=== PATIENT | female | born 1965 | race Caucasian/White ===

== ENCOUNTER 2019-10-16 05:33 | Outpatient (RCR) | payer MEDICAID, SELFPAY | END 2019-11-06 00:01 | LOC: ONCMED 05:33 | PROVIDERS: Family Provider Family Medicine; Referring Provider Family Medicine; Visit Provider Internal Medicine Medical Oncology | DX: C34.02 Malignant neoplasm of left main bronchus (principal); C79.71 Secondary malignant neoplasm of right adrenal gland; K21.9 Gastro-esophageal reflux disease without esophagitis; K59.00 Constipation, unspecified; R13.10 Dysphagia, unspecified; F41.8 Other specified anxiety disorders; J18.1 Lobar pneumonia, unspecified organism; J43.9 Emphysema, unspecified; J90 Pleural effusion, not elsewhere classified; I31.3 Pericardial effusion (noninflammatory); B19.20 Unspecified viral hepatitis C without hepatic coma; E03.9 Hypothyroidism, unspecified; M19.90 Unspecified osteoarthritis, unspecified site; F17.210 Nicotine dependence, cigarettes, uncomplicated; Z92.3 Personal history of irradiation ==

== ENCOUNTER 2019-11-15 05:59 | Outpatient (RCR) | payer MEDICAID, SELFPAY ==
[2019-11-15 14:22] LABS: Basophils % 0.2 %; Eosinophils # 0.1 10^3/uL (0.0-0.8); Eosinophils % 2.9 %; Hematocrit 35.9 % (37.0-47.0); Hemoglobin 11.4 g/dL (11.5-15.3); Lymphocytes # 0.9 10^3/uL (0.8-4.8); Lymphocytes % 18.6 %; Mean Corpuscular HGB Conc 31.8 g/dL (30.0-36.0); Mean Corpuscular Hemoglobin 29.8 pg (28.0-34.0); Mean Corpuscular Volume 93.7 fL (81-99); Mean Platelet Volume 9.9 fL (7.4-10.4); Monocytes # 0.4 10^3/uL (0.2-0.9); Monocytes % 9.2 %; Neutrophils # 3.3 10^3/uL (1.8-7.7); Neutrophils % 68.7 %; Nucleated Red Blood Cells % 0 %; Platelet Count 183 10^3/cmm (130-400); Red Blood Count 3.83 10^6/uL (4.1-5.3); Red Cell Distribution Width 13.9 % (12.1-15.1); White Blood Count 4.8 10^3/uL (4.0-10.0)
[2019-11-15 15:08] LABS: Alanine Aminotransferase 13 U/L (0-33); Albumin Level 3.6 g/dL (3.5-5.2); Alkaline Phosphatase 84 IU/L (35-105); Anion Gap 14.1 (5-19); Aspartate Amino Transferase 20 U/L (0-32); Blood Urea Nitrogen 6 mg/dL (6-20); Calcium 9.2 mg/Dl (8.6-10.0); Carbon Dioxide 26 mmol/L (22-29); Chloride 100 mmol/L (98-107); Globulin 2.3 g/dL (1.3-4.6); Glomerular Filtration Rate 86.9 mL/min (90-130); Glucose 92 mg/dL (74-109); Potassium 4.1 mmol/L (3.5-5.1); Sodium 136 mmol/L (136-145); Thyroid Stimulating Hormone 3.99 uIU/mL (0.27-4.20); Total Bilirubin 0.3 mg/dL (0.15-1.2); Total Protein 5.9 g/dL (6.6-8.7)
--- NOTE | 2019-11-19 10:45 | ONC FU_ITS ---
Dr. Hernandez Patient Follow-Up Note Patient: Debbie Arce Unit #: [id number]: 1965 Dicatated By: Sky Hernandez M.D.Date of Visit:Nov 15, 2019 Onc Med Follow-up/Prog Note Chief Complaint: Lung cancer. 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 She had been treated for pneumonia in October 2018 and she just never really got better. She had worsening shortness of breath and cough and she was then found to have an abnormal chest x-ray. Further evaluation with chest CT on 01/05/2019 showed prominent sized confluent lobulated masslike lesion within the AP window continuous with larger masslike lesion within the precarinal and subcarinal space. The lateral margin of the precarinal mass was noted to extend into the right paratracheal space. There were a few other mildly enlarged lymph nodes noted within the superior right paratracheal space. There was contiguous soft tissue thickening of the left hilar region. There was a mildly enlarged right hilar lymph node. The majority of the left upper lobe and lingula were occupied with parenchymal consolidation, at least partially reflective of atelectasis. There was no pleural effusion noted. There was trace pericardial effusion. A 3.4 cm right adrenal mass was felt to be suspicious for metastasis. Also noted was a 1 cm nodule within the right upper lobe and a smaller 8 mm nodule within the central aspect of the right upper lobe adjacent to bronchovascular structures. On 01/22/2019 she underwent bronchoscopy with biopsy of left mainstem endobronchial mass and EBUS with FNA biopsy of station 10R, station 4R, and station 7 lymph nodes. The bronchoscopy showed a fleshy polypoid growth with necrotic surface rising about half a centimeter from the left mainstem extending along the anterior and lateral mainstem wall into the left upper lobe and left lower lobe. Biopsies of the endobronchial mass and of the station 4R lymph node showed small cell carcinoma. She began urgent radiation to the left lung on 02/02/2019. Her staging PET/CT on 02/03/2019 showed large left hilar mass measuring 6.0 x 9.1 cm with SUV 16.8. There was complete atelectasis of the left upper lobe. A 1.2 cm right upper lobe nodule at SUV 6.9, consistent with metastatic disease. An FDG positive right upper hilar lymph node was also likely metastatic. There were additional malignant lymph nodes in the superior mediastinum, pretracheal and subcarinal territories. A 9.6 cm right adrenal mass at SUV 18.5, consistent with metastatic disease. Given the PET/CT findings, her initial radiation was limited to a brief course of treatment, completed on 02/09/2019 to a total dose of 2400 cGy. Following completion of radiation, she began a course of chemotherapy with carboplatin/etoposide, cycle 1 day 1 on 02/13/2019. She completed that treatment without acute toxicity. On 02/26/2019 she was admitted to the hospital with severe neutropenia and thrombocytopenia. At that time she reported increased weakness and increased chest congestion and cough. She was not febrile and she was not having any active bleeding. Her chest x-ray, though, did show findings compatible with lingular pneumonia. She was treated with Neupogen and broad-spectrum antibiotic therapy. She was not transfused platelets, as she did not appear to have a significant bleeding tendency. She was discharged on 03/03/2019 with her absolute neutrophil count adequate at 3700 and her platelet count up to 32,000. As of her follow-up visit on 03/06/2019 her platelet count was still moderately decreased at 62,000, and her 2nd cycle of chemotherapy was delayed. She was able to continue with cycle 2 on 03/14/2019. It was administered with dose reductions and with Neulasta prophylactically. Restaging CT scans of the chest, abdomen, and pelvis on 04/09/2019 showed markedly decreased size of the left hilar mass with interval aeration of the left upper lobe. There was residual mediastinal and left hilar soft tissue opacity with subcarinal lymphadenopathy, residual tumor not excluded. The right adrenal gland nodule also appeared smaller. Coarse interstitial thickening was noted in the left upper lobe and there was new right middle and right lower lobe groundglass attenuation. With evidence of response by CT scan, she continued with cycle 3 on 04/11/2019 and with cycle 4 on 05/15/2019. During that time her neutrophil count and platelet count remained adequate, but she became increasingly anemic, requiring PRBC transfusion on 05/08/2019. Her restaging chest CT on 06/21/2019 showed stable mediastinal and left hilar soft tissue opacity. Enhancing anterior mediastinal AP window and precarinal soft tissue thickening also appeared unchanged from the prior study in April 2019. Subcarinal lymphadenopathy was stable at 10 mm. A 5 mm noncalcified right lower lobe pulmonary nodule at increased slightly in size. Interstitial infiltrates in the left upper lobe, lingula, and left lower lobe appeared stable. There were moderate to advanced chronic emphysematous changes. A right adrenal nodule was stable at 12 mm. Repeat head MRI on 2018 showed no evidence of metastatic disease to the brain. With those findings, she was referred to Dr. Golden for consolidation radiation. She completed treatment on 08/23/2019 to a total dose of 4600 cGy. Her medical history is otherwise significant for degenerative arthritis, hypothyroidism, hepatitis C, and anxiety/depression. She has history of smoking 1-2 packs of cigarettes daily. She has cut down. INTERIM HISTORY: Restaging chest CT on 10/12/2019 showed left upper and left lower lobe pneumonitis with variable appearance compared to the study from 06/21/2019. Small left pleural effusion and small pericardial effusion were increased from the prior exam. There was no stable treated appearance of the mediastinum and left hilum. There was no evidence of progressive or new lymphadenopathy and there was no evidence of a neoplastic mass lesion in the lungs. There was no evidence of progression of previous metastatic lesion to the right adrenal gland. A right breast nodule measuring 1.5cm appeared stable compared to the PET/CT from 02/03/2019, and it was noted to be FDG negative on that study. She is seen for a follow-up visit. She continues to complain that she has no energy. She also complains that she is sleepy, but she is able to do light work. Her ECOG is 1. Appetite is variable. Her weight is stable. She has no fever, but she does have night sweating. She has sore throat and difficulty swallowing. She sometimes has shortness of breath. She has cough, but not very much. She continues to have stabbing pain in the substernal, epigastric area. She has no other GI or complaints. She has pain in her back, especially in the area of the left shoulder blade. She has generalized joint pain. She has lightheadness when she gets up. She has numbness/tingling in her feet. Medications: ALPRAZolam 1 Tablet (of 0.25 mg) Oral t.i.d., Fludrocortisone Acetate 1 Tablet (of 0.1 mg) Oral daily, Levo-T 1 Tablet (of 25 mcg) Oral daily, Loratadine 1 Tablet (of 10 mg) Oral daily, Morphine Sulfate 1 Tablet (of 15 mg) Oral four times a day, Morphine Sulfate ER 1 Tablet (of 30 mg) Tablet, controlled release Oral q 12 hours, predniSONE 1 Tablet (of 10 mg) Oral daily, Protonix 1 Tablet (of 40 mg) Tablet, enteric coated Oral daily Allergies: Erythromycin Base, Latex, Penicillins, Sulfa Antibiotics, and traMADol HCl. Review of Systems: Constitutional - Her energy is not good, but she is able to do light work at home. Her appetite comes and goes. Her weight is stable. No fever. She does have night sweating. ECOG score is 1, ENMT - No sinus congestion/drainage. No mouth sores. She has sore throat and she has difficulty swallowing, Hematologic/Lymphatic - No abnormal bruising or bleeding, Respiratory - She is sometimes short of breath. She has a cough, but not very much. No pleuritic pain or hemoptysis, Cardiovascular - She has stabbing pain in the substernal/epigastric area. No palpitations, Gastrointestinal - She has some nausea. Her acid reflux is adequately managed. No constipation or diarrhea. No blood in the stool or black stools, Genitourinary (F) - No dysuria or hematuria. No urinary frequency. No urgency or incontinence, Musculoskeletal - She has pain in her back, especially in the area of the left shoulder blade. She has generalized joint pain, Integumentary - No skin complications, Neurologic - No headache. She has some lightheadedness. She has numbness/tingling in her feet, Psychiatric - She has anxiety and depression. She does not sleep well at night. Vital Signs: Performed on Nov 15, 2019 15:01 Height - 66.00 in Weight - 121.0 lbs (LOW) BSA - 1.62 sq.m BMI - 19.53 Temperature - 97.8 F (LOW) Pulse - 87 /min Respiration - 18 /min BP - 87/58 mm(hg) (LOW) O2 Sat - 97 % Pain - 8 Physical Examination: Constitutional - She appears somewhat weak generally, Eyes - Sclerae nonicteric. Conjunctivae clear, ENMT - No lesions noted in the oral cavity, Hematologic/Lymphatic - No cervical, clavicular, or axillary adenopathy, Respiratory - Lungs sound clear with diminished air movement bilaterally, Cardiovascular - Heart rhythm is regular. There is no murmur, gallop, or rub noted, Abdomen - Soft. Liver and spleen are not enlarged. There is no abdominal mass or ascites noted and there is no inguinal adenopathy, Extremities - No edema, Neurologic - No focal neurologic deficits noted. Lab/Imaging: Test performed on Nov 15, 2019 13:56 Sodium 136 mmol/L TSH 3.99 uIU/mL Potassium 4.1 mmol/L Chloride 100 mmol/L CO2 26 mmol/L Anion Gap 14.1 BUN 6 mg/dL Creatinine 0.7 mg/dL Cr Clearance (Est) 78.68 mL/min eGFR 86.9 mL/min Glucose 92 mg/dL Calcium 9.2 mg/dL Protein, Total 5.9 g/dL Albumin 3.6 g/dL Globulin 2.3 g/dL Bilirubin, Total 0.3 mg/dL ALT (SGPT) 13 Units/L AST (SGOT) 20 Units/L Alkaline Phosphatase 84 IU/L WBC 4.8 10^3/uL RBC 3.83 10^6/uL HGB 11.4 g/dL HCT 35.9 % MCV 93.7 fl MCH 29.8 pg MCHC 31.8 g/dL RDW 13.9 % Platelet Count 183 10^3/uL MPV 9.9 fl Neutrophils 3.3 10 3/uL Lymphocytes 0.9 10^3/uL Monocytes 0.4 10^3/uL Eosinophils 0.1 10^3/uL Basophils 0.0 10^3/uL Neutrophil % 68.7 % Lymphocyte % 18.6 % Monocyte % 9.2 % Eosinophil % 2.9 % Basophils % 0.2 % Impression: 1. Patient with small cell carcinoma involving the mainstem bronchus of the left lung. By clinical evaluation her disease is stage IV (T2, N3, M1b) with PET/CT evidence of right adrenal metastasis. 2. There was associated left upper lobe and lingular atelectasis on her CT scan from 01/05/2019. 3. She reported having headache and vomiting, but her brain MRI showed no evidence for metastatic involvement. Her other medical illnesses include: 4. She has a history of hepatitis C, which apparently has not been treated. 5. Hypothyroidism. 6. Degenerative arthritis. 7. Chronic anxiety/depression. Due to involvement of the mainstem bronchus she began radiation urgently. In the setting metastatic disease the initial radiation was limited to a brief course of treatment, completed on 02/09/2019 to a total dose of 2400 cGy. She then began cycle 1 of carboplatin/etoposide chemotherapy on 02/13/2019. She had no acute toxicity with the chemotherapy. She did develop symptoms of radiation esophagitis, treated empirically with ranitidine and fluconazole. On 02/26/2019 she was admitted to the hospital with severe neutropenia and thrombocytopenia. She was not febrile, but her chest x-ray did show evidence of lingular pneumonia. She was treated Neupogen and broad-spectrum antibiotic coverage. She did not have bleeding, and she did not require platelet transfusion. Cycle 2 was delayed due to persistent thrombocytopenia. It was administered with dose reductions and with Neulasta prophylactically. She did have evidence of significant response by restaging CT scans on 04/09/2019. She then continued with cycle 3 on 04/11/2019 and with cycle 4 on 05/15/2019. She was tolerating treatment with acceptable toxicity, though she did require PRBC transfusion prior to cycle 4. Her restaging chest CT on 06/21/2019 showed stable mediastinal and left hilar soft tissue opacity. Enhancing anterior mediastinal AP window and precarinal soft tissue thickening also appeared unchanged from the prior study in April 2019. Subcarinal lymphadenopathy was stable at 10 mm. A 5 mm noncalcified right lower lobe pulmonary nodule at increased slightly in size. Interstitial infiltrates in the left upper lobe, lingula, and left lower lobe appeared stable. There were moderate to advanced chronic emphysematous changes. A right adrenal nodule was stable at 12 mm. Repeat head MRI on a 2018 showed no evidence of metastatic disease to the brain. With those findings, she was referred to Dr. Golden for consolidation radiation. She completed treatment on 08/23/2019 to a total dose of 4600 cGy. She experienced significant side effects during the chemotherapy and radiation, but those had gradually resolved. She has continued, though, to have significant fatigue and musculoskeletal pain. She continues to have some ongoing problems with anxiety/depression. She had a very good response to the treatment, thus far with CT no evidence of disease progression. Plan: She continues on observation/expectant management for the lung cancer. She will be scheduled for a follow-up visit with restaging CT scans in 2 months. In the meantime, I will have her try increasing citalopram to 40 mg daily. Signed By: Sky Hernandez M.D. <<Signature on File>>
== END 2019-12-07 23:59 | disposition home or self-care (01) ==
LOC: ONCMED 05:59
PROVIDERS: Family Provider Family Medicine; Visit Provider Internal Medicine Medical Oncology
DX: C79.71 Secondary malignant neoplasm of right adrenal gland (principal); Z85.118 Personal history of other malignant neoplasm of bronchus and lung; M19.90 Unspecified osteoarthritis, unspecified site; E03.9 Hypothyroidism, unspecified; J43.9 Emphysema, unspecified; B19.20 Unspecified viral hepatitis C without hepatic coma; F41.8 Other specified anxiety disorders; F17.210 Nicotine dependence, cigarettes, uncomplicated; J90 Pleural effusion, not elsewhere classified; I31.3 Pericardial effusion (noninflammatory); Z79.891 Long term (current) use of opiate analgesic; Z87.01 Personal history of pneumonia (recurrent); Z92.3 Personal history of irradiation; Z92.21 Personal history of antineoplastic chemotherapy
CPT/HCPCS: 36591; 80053; 84443; 85025; 99214

== ENCOUNTER 2019-12-17 06:13 | Outpatient (RCR) | payer MEDICAID, SELFPAY | END 2020-01-05 23:59 | disposition home or self-care (01) | LOC: ONCMED 06:13 | PROVIDERS: Family Provider Family Medicine; Visit Provider Internal Medicine Medical Oncology | DX: Z45.2 Encounter for adjustment and management of vascular access device (principal) | CPT/HCPCS: 96523 ==

== ENCOUNTER 2020-01-14 11:10 | Emergency (ER) | payer MEDICAID, SELFPAY ==
--- NOTE | 2020-01-14 11:14 | XRR_ITS ---
PROCEDURE INFORMATION: Exam: XR Right Hip with Pelvis Exam date and time: 01/14/2020 12:12 PM Age: 54 years old Clinical indication: Injury or trauma; Fall; Initial encounter; Blunt trauma (contusions or hematomas); Right; Hip; Injury date: Today; Additional info: Fall/pain TECHNIQUE: Imaging protocol: XR Right hip with pelvis Views: Three views of the right hip, including AP pelvis. COMPARISON: CR Pelvis AP 1 or 2 views* [id number] 04/11/2019 11:07 AM FINDINGS: Bones/joints: No acute bony abnormality identified. Soft tissues: Unremarkable. Vasculature: Calcified phleboliths are present in the lower pelvis bilaterally. XR/XR hip RT 2-3V wo/w pel* [id number] IMPRESSION: No acute bony abnormality identified.
[2020-01-14 12:03] VITALS: BP 91/69; PULSE 94; RESP 18; TEMP 36.9; O2SAT 93; BMI 20.9
[2020-01-14 12:33] VITALS: BP 93/67; PULSE 93; RESP 18; O2SAT 94
--- NOTE | 2020-01-14 13:41 | ED_ITS ---
HPI - Fall General: Chief Complaint: Extremity Injury, Lower Stated Complaint: FALL RIGHT HIP PAIN Time Seen by Provider: 01/14/20 12:50 Source: patient Mode of arrival: ambulatory Limitations: no limitations History of Present Illness: HPI Narrative: Patient is a 54-year-old female who presents to ED today with complaints of acute right hip pain following a fall. Patient tells me this morning she was walking to the fridge when she began coughing which then caused her to become lightheaded and fall. Patient tells me that these are not new symptoms for her as she often gets lightheaded and dizzy following coughing. Patient states she can normally sit down and put her head between her legs to keep herself from passing out. Patient states the fall was witnessed and reports that she did not strike her head. She is not having any neck or back pain. Her only complaint is the right hip pain. MD complaint: fall Onset (ago): hour(s) Fall from: standing Fall witnessed: yes, by family Place fall occurred: home Loss of consciousness: None Prolonged down time: no Symptoms prior to fall: lightheadedness and dizziness Associated symptoms-after fall: Denies neck pain Review of Systems Const: Denies: fever, chills, body aches, change in appetite, change in weight or fatigue Resp: Reports: shortness of breath (chronic ) and productive cough (chronic ) Musc: Reports: joint pain (R hip); Denies: neck pain, back pain, extremity pain, extremity swelling or joint swelling Neuro: Denies: numbness in extremities, weakness in extremities or changes in sensation PFS ED PFSH: Social History Smoking and tobacco status: current every day smoker Physical Exam Const: COMMON NORMALS: no apparent distress, average body habitus, oriented x3, no limitations, healthy appearing, alert and well nourished Resp: COMMON NORMALS: normal respiratory effort and clear to auscultation bilaterally AUSCULTATION: clear to auscultation bilaterally Cardio: COMMON NORMALS: regular rate and regular rhythm RATE: regular rate RHYTHM: regular rhythm Extremity: OTHER: pt has TTP of anterior/lateral hip; she is seated in a wheelchair but is able to raise her leg and move her joint around; NV intact Neuro: COMMON NORMALS: oriented x3, no focal motor deficits and no sensory def icits noted SENSORIUM/ORIENTATION: Yes alert Course Vital Signs: Vital signs: Vital Signs Temperature 98.4 F 01/14/20 12:03 Pulse Rate 88 01/14/20 14:01 Respiratory Rate 16 01/14/20 14:01 Blood Pressure 90/63 01/14/20 14:01 Pulse Oximetry 91 01/14/20 14:01 MDM - Fall MDM Narrative: Medical decision making narrative: Patient was offered work-up regarding the lightheadedness and dizziness and further evaluation since this was a nonmechanical fall however she refuses. She states the cough accompanied with lightheadedness/dizziness is chronic for her. She is following up with Dr. Hernandez for lung cancer at this time. Patient's x-rays are negative today. Patient was requesting pain medications however she is on chronic morphine and given her blood pressure of 90s/60s I did not want to treat her with additional IV/IM narcotic pain medications especially since she was already complaining of lightheadedness/dizziness. I did elect to give patient a hydrocodone 5/325mg prior to discharge that she seemed unsatisfied with. Imaging Data^: R hip/pelvis XR: Radiologist's impression: [address] [place] [address] XRay Report Signed Patient: Debbie Arce Unit #: [id number] : 1965 Age/Sex: 54 / F ADM Date: 01/14/20 Loc: ER Room/Bed: Attending Dr: Ordering Provider/Ordering MD: Charline Aleman Date of Service: 01/14/20 Procedure(s): XR hip RT 2-3V wo/w pel* [id number] Accession Number(s): [id number] Report Number: [id number] PROCEDURE INFORMATION: Exam: XR Right Hip with Pelvis Exam date and time: 01/14/2020 12:12 PM Age: 54 years old Clinical indication: Injury or trauma; Fall; Initial encounter; Blunt trauma (contusions or hematomas); Right; Hip; Injury date: Today; Additional info: Fall/pain TECHNIQUE: Imaging protocol: XR Right hip with pelvis Views: Three views of the right hip, including AP pelvis. COMPARISON: CR Pelvis AP 1 or 2 views* [id number] 04/11/2019 11:07 AM FINDINGS: Bones/joints: No acute bony abnormality identified. Soft tissues: Unremarkable. Vasculature: Calcified phleboliths are present in the lower pelvis bilaterally. XR/XR hip RT 2-3V wo/w pel* [id number] IMPRESSION: No acute bony abnormality identified. Dictated By: Tong Rosenthal MD Signed By: Tong Rosenthal MD Signed Date/Time: 01/14/20 1318 DD/ 1317 Discharge Plan Discharge Patient Disposition: Home, Self-Care Clinical Impression: Contusion of hip, right Qualifiers: Encounter type: initial encounter Qualified Code(s): S70.01XA - Contusion of right hip, initial encounter Condition: Stable Discharge Orders: Discharge Order (Routine); Ordered 01/14/20 Ordered By: Charline Aleman Referrals: Nghia Guaman [Family Provider] - Patient Instructions: Contusion Discharge Date/Time: 01/14/20 14:04 Coding Level of Care Code ED [employer] Specialist for Mesha Miller
[2020-01-14] MEDS: HYDROcodone-acetaminophen 5-325 mg Tablet 1 TAB PO (13:59)
[2020-01-14 14:01] VITALS: BP 90/63; PULSE 88; RESP 16; O2SAT 91
== END 2020-01-14 14:04 | disposition home or self-care (01) ==
PROVIDERS: Emergency Provider Physician Assistant; Family Provider Family Medicine
DX: S70.01XA Contusion of right hip, initial encounter (principal); C34.90 Malignant neoplasm of unspecified part of unspecified bronchus or lung; F17.200 Nicotine dependence, unspecified, uncomplicated; Z79.891 Long term (current) use of opiate analgesic; W18.30XA Fall on same level, unspecified, initial encounter; Y92.009 Unspecified place in unspecified non-institutional (private) residence as the place of occurrence of the external cause
CPT/HCPCS: 12345; 72170; 73502; 99281; 99283

== ENCOUNTER 2020-01-16 05:38 | Outpatient (RCR) | payer MEDICAID, SELFPAY ==
--- NOTE | 2020-01-14 14:52 | CT_ITS ---
WS: [id number] CT CHEST WITH INTRAVENOUS CONTRAST HISTORY: LUNG CANCER TECHNIQUE: Contiguous 5 mm axial imaging performed on the thorax. Coronal and sagittal reformats are submitted. All CT scans at [facility] use at least one of these dose optimization techniq ues: automated exposure control; mA and/or kV adjustment per patient size (includes targeted exams wh ere dose is matched to clinical indication); or iterative reconstruction. CONTRAST: Omnipaque 300; 95 mL IV. DLP: 539.78 mGy.cm COMPARISON: 10/12/2019, 06/21/2019 Lungs and central airway: Hyperinflated lungs with changes of emphysema. Volume loss in the LEFT thor ax with pleural thickening. Increasing soft tissue density at the LEFT hilum since 10/12/2019. Irregul ar shaped soft tissue density measuring 3.1 x 1.7 cm. Resulting in mild narrowing of the LEFT upper l obe bronchus. There is additional increasing soft tissue at the LEFT hilum measuring up to 1.0 cm whi ch may be lymph nodes. There are small paraesophageal lymph nodes on the LEFT. Increasing atelectasis LEFT upper lobe adjacent to the aorta and pulmonary artery. Extensive interstitial thickening in the medial LEFT upper lobe and along the LEFT hilum. This all may be radiation induced pulmonary pneumon itis. RIGHT lung is hyperexpanded with emphysema. Pleura: Very small amount of pleural fluid remains. Previous the described pleural effusion on the LE FT as nearly resolved. Heart and pericardium: Normal size heart. No pericardial effusion. Mediastinum and angel: Increased soft tissue at the LEFT hilum. LEFT hilar lymph node measures up to 1 .0 cm. Vessels: Normal size pulmonary artery. Mild atherosclerosis aorta. Chest wall and lower neck: RIGHT subclavian Port-A-Cath. Previously described nodule in the RIGHT arabella ast measures 1.4 cm and is unchanged. Upper abdomen: Visualized liver is negative for metastatic disease or any interval change. No adrenal nodules. Mild increase in thoracic kyphosis. Osseous structures: No destructive bone lesions. CT/CT chest w con* [id number] IMPRESSION: 1. Irregular shaped increased soft tissue with mild narrowing of the LEFT upp er lobe bronchus measures 3.1 x 1.7 cm. There is additional partial atelectasis medial LEFT upper lobe. These changes may all be related to posttreatment pneu monitis and atelectasis. With the increasing soft tissue since 10/12/2019 recurr ent neoplasm should be considered. Consider short-term chest CT follow-up or PE T/CT imaging. 2. Nearly completely resolved LEFT pleural effusion. 3. Chronic emphysema with radiation induced pneumonitis in the LEFT upper LEFT lower lobes.
[2020-01-14] MEDS: iohexol 300 mg/mL 100 mL Btl IV (15:38)
== END 2020-02-05 23:59 | disposition home or self-care (01) ==
LOC: ONCMED 05:38
PROVIDERS: Family Provider Family Medicine; Visit Provider Internal Medicine Medical Oncology
DX: C34.02 Malignant neoplasm of left main bronchus (principal); C79.71 Secondary malignant neoplasm of right adrenal gland; J43.9 Emphysema, unspecified; J70.0 Acute pulmonary manifestations due to radiation; W88.1XXA Exposure to radioactive isotopes, initial encounter
CPT/HCPCS: 71260

== ENCOUNTER 2020-06-06 06:57 | Outpatient (RCR) | payer MEDICAID, SELFPAY ==
--- NOTE | 2020-05-26 08:54 | ONCRAD EPV_ITS ---
Radiation Oncology Established Patient Visit Patient: Radha MR#: [id number] : 1965> Age: 55> Sex: Female> Account #: Dictated by: Dr. 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 ID: [id number], Energy: 15X/6X, Dose/Fx (cGy): 400, #Fx: 6 / 6, Dose Correction (cGy): 0, Total Dose (cGy): 2,400, Start Date: 02/02/2019, End Date: 02/09/2019, Elapsed Days: 7 Treatment Site: LT Lung 46Gy, Ref. ID: [id number], Energy: 15X/6X, Dose/Fx (cGy): 200, #Fx: 23 / 23, Dose Correction (cGy): 0, Total Dose (cGy): 4,600, Start Date: 07/24/2019, End Date: 08/23/2019, Elapsed Days: 30 Chief Complaint / History of Present Illness: The patient is a 55-year-old female with metastatic small cell lung carcinoma. She reports that in early March she began having progressive headaches, nausea, vomiting, and balance instability. When she went to her primary care physician to address a vaginal infection, she shared her symptoms with Dr. Guaman, who subsequently ordered a CT of the head to rule out a stroke. On 05/16/[address] of the head revealed a 4.9 x 2.2 cm hemorrhagic lesion within the right parietal and occipital lobe with mild mass-effect on the right lateral ventricle. There was an additional 1.1 cm hemorrhagic lesion in the right caudate. The patient reports that she was placed on dexamethasone. She reports no seizures, but she does have persistent balance instability. The patient's most recent CT of the chest (01/14/2020) revealed a progressive 3.1 cm soft tissue mass with mild narrowing of the left upper lobe bronchus, near completely resolved left pleural effusion, and chronic emphysema with radiation-induced pneumonitis in the left upper & lower lobes. The patient reports no progressive shortness of breath Current Medications: Advair Diskus, aLPRAZolam, aLPRAZolam, benzonatate, cARBOplatin, ciprofloxacin HCl, citalopram Hydrobromide, dexamethasone, dexamethasone Sodium Phosphate, etoposide, first-Mouthwash BLM, fludrocortisone Acetate, fludrocortisone Acetate, klor-Con 10, lactulose, lactulose, levo-T, loratadine, lORazepam, marinol, metroNIDAZOLE, morphine Sulfate, morphine Sulfate, morphine Sulfate ER, morphine Sulfate ER, ondansetron HCl, palonosetron HCl, pantoprazole Sodium, predniSONE, predniSONE, prochlorperazine Maleate, protonix, protonix, proventil HFA, raNITIdine HCl, reglan, reglan, senna S, senokot, sucralfate, traZODone HCl, zofran ODT. Allergies: Latex, Penicillins, Sulfa Antibiotics, traMADol HCl and Erythromycin Base. Current Complaints / Review of Systems: Constitutional - Complains of fatigue. Complains of rigors / chills occurring occasionally. Complains of change in weight which is up and down but is stable. Denies lack of appetite, fever and night sweats. Eyes - Complains of blurred vision occasionally in both eyes. Denies double vision. ENMT - Complains of dysphagia. Denies ear pain, mouth dryness, stomatitis and altered taste. Neck - Complains of neck pain. Denies decreased range of motion and swelling of the neck. Integumentary - Denies rash. Cardiovascular - Denies arrhythmias, chest pain and edema. Respiratory - Complains of cough occasionally. Denies dyspnea and wheezing. Gastrointestinal - Complains of intermittent constipation. Complains of heartburn / dyspepsia. Denies abdominal pain, diarrhea, melena / GI bleeding, nausea and vomiting. Genitourinary (F) - Complains of nocturia gets up about every 2 hours. Just went off Detrol LA. and urgency. Denies dysuria, frequency, vaginal discharge / bleeding and vaginal spotting. Musculoskeletal - Complains of joint pain in both hips, knees, and lower to mid back. Complains of generalized muscle weakness. Denies bone pain. Neurologic - Complains of disorientation to time, place, and person. Complains of frequent dizziness that occurs upon sitting to standing. Complains of abnormal gait in which she feel off balanced with walking.. Complains of mild headaches occurring intermittently throughout the day which is relieved by analgesics. Denies seizure. Endocrine - Complains of thyroid disease. Denies diabetes. Hematologic/Lymphatic - Denies tender or enlarged lymph nodes.. Vital Signs: Performed on 05/22/2020 7:56 AM BMI - 23.404 kg/m2 (high), Height - 66.00 in, Weight - 145.0 lbs, Temperature - 98.4 f, Pulse - 67, Respiration - 16, O2 Sat - 96 %, Pain - 7 and BP - 120/ 79 mm(hg). Physical Exam: General: Alert and oriented x 3. No acute distress. HEENT: Normocephalic, atraumatic. Extraocular Movements Intact. Sclerae anicteric. Oral cavity is clear without lesions, masses or ulcers. NECK: Supple without supraclavicular or jugular lymphadenopathy. LUNGS: Clear to auscultation bilaterally without rales, rhonchi or wheeze. HEART: Regular rate and rhythm, normal S1 and S2 without murmur, gallop or rub. MUSCULOSKELETAL: No tenderness or percussion pain over the axial skeleton, scapulae or pelvis. EXTREMITIES: No peripheral edema is identified NEUROLOGIC: Cranial nerves II ???XII are grossly intact. There was no pronator drift, Romberg testing was negative, but the patient was unable to walk in a tandem gait. Performance Status: 3 - Capable of only limited self-care, confined to bed or chair more than 50% of waking hours. (ECOG) Lab: None pending. Test performed on 11/15/2019 1:56 PM Neutrophils - 3.3 10 3/ul (high). Pathology: Primary, c79.71 - secondary malignant neoplasm of right adrenal gland, Diagnosed 02/13/2019 (active), Primary, c34.02 - malignant neoplasm of left main bronchus, Diagnosed 01/22/2019 (active) stage iv, t2, n3, m1b and Secondary, g89.3 - neoplasm related pain (acute) (chronic), Diagnosed 01/31/2019 (active). Imaging: Personally reviewed by me as listed in the HPI. Impression: The patient is a 55-year-old female with metastatic small cell lung carcinoma and a new diagnosis of intracranial metastasis as determined via CT of the head which revealed a 4.9 cm hemorrhagic lesion within the right parietal and occipital lobe and a 1.1 cm hemorrhagic lesion in the right caudate. The patient has been previously treated with 2 courses of palliative radiation therapy to the left lung and systemic therapy administered by Dr. Hernandez. The plan is to provide palliative whole brain radiation therapy to a total dose of 30 Gy in 10 fractions without concurrent chemotherapy. We will begin CT simulation and treatment on Tuesday. We discussed radiation treatment logistics, the palliative nature of treatment to improve short-term overall survival, and treatment side effects to include: Scalp erythema, alopecia, short-term memory loss, and a reduction in cognition over time. Furthermore, we had a candid discussion regarding prognosis. The patient verbally agreed to accept the risks of treatment for a short-term survival benefit. Signed by: 05/26/2020 8:53:10 AM <<Signature on File>> CPT Code: CPT Code:
--- NOTE | 2020-05-27 | CT_ITS ---
Radiation Therapy Planning CT images; total exam DLP: 535.09 mGy-cm MTDD
--- NOTE | 2020-06-03 13:41 | ONCRAD TMN_ITS ---
Radiation Oncology Weekly Treatment Management Patient: Debbie Arce MR#: [id number] : 1965> Age: 55> Sex: Female Dictated by: Dr. 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 ID: [id number], Energy: 15X/6X, Dose/Fx (cGy): 300, #Fx: 10, Dose Correction (cGy): 0, Total Dose (cGy): 1,500, Start Date: 05/27/2020, Elapsed Days: 6 Interim history: Aside from a metallic-like taste and mild fatigue, the patient has no complaints. Current Medications: Advair Diskus, albuterol Sulfate HFA, aLPRAZolam, aLPRAZolam, benzonatate, cARBOplatin, ciprofloxacin HCl, citalopram Hydrobromide, citalopram Hydrobromide, dexamethasone, dexamethasone, dexamethasone Sodium Phosphate, etoposide, first-Mouthwash BLM, flonase, fludrocortisone Acetate, fludrocortisone Acetate, guaiFENesin-Codeine, hYDROcodone-Acetaminophen, klor-Con 10, klor-Con 10, lactulose, lactulose, levo-T, loratadine, lORazepam, marinol, metroNIDAZOLE, morphine Sulfate, morphine Sulfate, morphine Sulfate ER, morphine Sulfate ER, naloxone HCl, ondansetron HCl, palonosetron HCl, pantoprazole Sodium, predniSONE, predniSONE, prochlorperazine Maleate, protonix, protonix, proventil HFA, raNITIdine HCl, reglan, reglan, senna S, senokot, sSD, sucralfate, traZODone HCl, zofran ODT. Allergies: Latex, Penicillins, Sulfa Antibiotics, traMADol HCl and Erythromycin Base. Current Complaints/Review of Systems: Constitutional - Denies lack of appetite. Eyes - Complains of blurred vision in both eyes. Complains of photophobia associated with all bright light sources. Denies double vision. ENMT - Denies stomatitis. Gastrointestinal - Denies nausea and vomiting. Neurologic - Complains of intermittent dizziness. Complains of abnormal gait. Complains of headaches occurring intermittently throughout the day. Vital Signs: Performed on 06/02/2020 3:07 PM BMI - 23.016 kg/m2 (high), Height - 66.00 in, Weight - 142.6 lbs, Temperature - 97.8 f, Pulse - 92, Respiration - 20, O2 Sat - 99 %, Pain - 7 and BP - 114/ 77 mm(hg). Physical Exam: Lungs are clear to auscultation bilaterally, no cervical/supraclavicular lymph adenopathy, and no scalp erythema. There are no physical exam findings consistent with oral thrush. Performance Status: 3 - Capable of only limited self-care, confined to bed or chair more than 50% of waking hours. (ECOG) Lab: None pending in Radiation Oncology. Test performed on 11/15/2019 1:56 PM Neutrophils - 3.3 10 3/ul (high). Imaging: No new diagnostic imaging was performed since the last weekly treatment visit. All radiation therapy related imaging (including but not limited to kV, MV, and CBCT generated images) was reviewed. Appropriate changes, if any, were made to assure accurate target localization. Impression/Plan: Tolerating treatment well with expected side effects. Continue treatment as planned. Dexamethasone was reduced from 4 mg twice daily to 4 mg once daily. CPT: 45848 Signed by: Dr. Garry Montenegro>06/03/2020 1:40:45 PM <<Signature on File>>
== END 2020-06-06 23:59 | disposition home or self-care (01) ==
LOC: ONCMED 06:57
PROVIDERS: PCP Family Medicine; Visit Provider Radiology Radiation Oncology
DX: Z51.0 Encounter for antineoplastic radiation therapy (principal); C79.31 Secondary malignant neoplasm of brain; C79.71 Secondary malignant neoplasm of right adrenal gland; C34.02 Malignant neoplasm of left main bronchus
CPT/HCPCS: 77280; 77290; 77295; 77300; 77334; 77336; 77387; 77412; 99214

== ENCOUNTER 2020-06-11 05:24 | Outpatient (RCR) | payer MEDICAID, SELFPAY ==
--- NOTE | 2020-06-09 15:37 | ONCRAD TMN_ITS ---
Radiation Oncology Weekly Treatment Management Patient: Debbie Arce MR#: [id number] : 1965> Age: 55> Sex: Female Dictated by: Dr. Garry Montenegro Date of Service: 06/09/2020 Referring Physician(s) : Nghia Guaman M.D. 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 ID: [id number], Energy: 15X/6X, Dose/Fx (cGy): 300, #Fx: , Dose Correction (cGy): 0, Total Dose (cGy): 3,000, Start Date: 05/27/2020, End Date: 06/09/2020, Elapsed Days: 13 Reason for visit: The patient is being seen today as part of their regularly scheduled weekly on treatment visits to assess for acute toxicities for radiotherapy. Interim History: The patient reports that she tolerated her Dexamethasone reduction well and without issues. She has no recurrent headaches, blurred vision, or balance difficulties. Current Medications: Advair Diskus, albuterol Sulfate HFA, aLPRAZolam, aLPRAZolam, benzonatate, cARBOplatin, ciprofloxacin HCl, citalopram Hydrobromide, citalopram Hydrobromide, dexamethasone, dexamethasone, dexamethasone Sodium Phosphate, etoposide, first-Mouthwash BLM, flonase, fludrocortisone Acetate, fludrocortisone Acetate, guaiFENesin-Codeine, hYDROcodone-Acetaminophen, klor-Con 10, klor-Con 10, lactulose, lactulose, levo-T, loratadine, lORazepam, marinol, metroNIDAZOLE, morphine Sulfate, morphine Sulfate, morphine Sulfate ER, morphine Sulfate ER, naloxone HCl, nystatin, ondansetron HCl, palonosetron HCl, pantoprazole Sodium, predniSONE, predniSONE, prochlorperazine Maleate, protonix, protonix, proventil HFA, raNITIdine HCl, reglan, reglan, senna S, senokot, sSD, sucralfate, traZODone HCl, zofran ODT. Allergies: Latex, Penicillins, Sulfa Antibiotics, traMADol HCl and Erythromycin Base. Current Complaints/Review of Systems: Vital Signs: Physical Exam: Positive scalp erythema, no desquamation. No oral thrush. Performance Status: 3 - Capable of only limited self-care, confined to bed or chair more than 50% of waking hours. (ECOG) Lab: None pending in Radiation Oncology. Imaging: Radiation therapy imaging related to accurate target localization (i.e. KV, MV and CBCT) was reviewed. Appropriate changes, if any, were made to ensure treatment accuracy. Assessment/Plan: The patient is a 55-year-old female with metastatic small cell lung carcinoma and a new diagnosis of intracranial metastasis as determined via CT of the head which revealed a 4.9 cm hemorrhagic lesion within the right parietal and occipital lobe and a 1.1 cm hemorrhagic lesion in the right caudate. Today, she completed whole brain radiation therapy to a total dose of 30 Gy in 10 fractions. She has tolerated dexamethasone taper well. Today, she was instructed to discontinue dexamethasone, but restart it if she experiences recurrent symptoms (headaches, blurred vision, balance instability). Return in 4-6 weeks with repeat MRI of the brain. CPT: 08748 Signed by: Dr. Garry Montenegro>06/09/2020 3:35:36 PM <<Signature on File>>
[2020-06-11 11:54] LABS: Basophils % 0.3 %; Eosinophils # 0.1 10^3/uL (0.0-0.8); Eosinophils % 0.6 %; Hemoglobin 14.9 g/dL (11.5-15.3); Lymphocytes # 0.5 10^3/uL (0.8-4.8); Lymphocytes % 3.9 %; Mean Corpuscular HGB Conc 32.4 g/dL (30.0-36.0); Mean Corpuscular Hemoglobin 30.5 pg (28.0-34.0); Mean Corpuscular Volume 94.1 fL (81-99); Mean Platelet Volume 9.5 fL (7.4-10.4); Monocytes # 0.3 10^3/uL (0.2-0.9); Monocytes % 2.5 %; Neutrophils # 10.65 10^3/uL (1.8-7.7); Neutrophils % 89.8 %; Nucleated Red Blood Cells % 0 %; Platelet Count 157 10^3/cmm (130-400); Red Blood Count 4.89 10^6/uL (4.1-5.3); Red Cell Distribution Width 13.8 % (12.1-15.1); White Blood Count 11.9 10^3/uL (4.0-10.0)
[2020-06-11 12:14] LABS: Alanine Aminotransferase 33 U/L (0-33); Albumin Level 3.5 g/dL (3.5-5.2); Alkaline Phosphatase 85 IU/L (35-105); Anion Gap 12.3 (5-19); Aspartate Amino Transferase 23 U/L (0-32); Blood Urea Nitrogen 14 mg/dL (6-20); Calcium 8.4 mg/dL (8.5-10.5); Carbon Dioxide 28 mmol/L (22-29); Chloride 100 mmol/L (98-107); Globulin 2.4 g/dL (1.3-4.6); Glomerular Filtration Rate 86.6 mL/min (90-130); Glucose 94 mg/dL (65-115); Osmolality Calculated 278 mOsm/kg (285-295); Potassium 4.3 mmol/L (3.5-5.1); Sodium 136 mmol/L (136-145); Total Bilirubin 0.3 mg/dL (0.15-1.2); Total Protein 5.9 g/dL (6.6-8.7)
--- NOTE | 2020-06-14 14:02 | ONC FU_ITS ---
Dr. Hernandez Patient Follow-Up Note Patient: Debbie Arce Unit #: [id number]: 1965 Dicatated By: Sky Hernandez M.D.Date of Visit:Jun 11, 2020 Onc Med Follow-up/Prog Note Chief Complaint: Lung cancer. 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 She had been treated for pneumonia in October 2018 and she just never really got better. She had worsening shortness of breath and cough and she was then found to have an abnormal chest x-ray. Further evaluation with chest CT on 01/05/2019 showed prominent sized confluent lobulated masslike lesion within the AP window continuous with larger masslike lesion within the precarinal and subcarinal space. The lateral margin of the precarinal mass was noted to extend into the right paratracheal space. There were a few other mildly enlarged lymph nodes noted within the superior right paratracheal space. There was contiguous soft tissue thickening of the left hilar region. There was a mildly enlarged right hilar lymph node. The majority of the left upper lobe and lingula were occupied with parenchymal consolidation, at least partially reflective of atelectasis. There was no pleural effusion noted. There was trace pericardial effusion. A 3.4 cm right adrenal mass was felt to be suspicious for metastasis. Also noted was a 1 cm nodule within the right upper lobe and a smaller 8 mm nodule within the central aspect of the right upper lobe adjacent to bronchovascular structures. On 01/22/2019 she underwent bronchoscopy with biopsy of left mainstem endobronchial mass and EBUS with FNA biopsy of station 10R, station 4R, and station 7 lymph nodes. The bronchoscopy showed a fleshy polypoid growth with necrotic surface rising about half a centimeter from the left mainstem extending along the anterior and lateral mainstem wall into the left upper lobe and left lower lobe. Biopsies of the endobronchial mass and of the station 4R lymph node showed small cell carcinoma. She began urgent radiation to the left lung on 02/02/2019. Her staging PET/CT on 02/03/2019 showed large left hilar mass measuring 6.0 x 9.1 cm with SUV 16.8. There was complete atelectasis of the left upper lobe. A 1.2 cm right upper lobe nodule at SUV 6.9, consistent with metastatic disease. An FDG positive right upper hilar lymph node was also likely metastatic. There were additional malignant lymph nodes in the superior mediastinum, pretracheal and subcarinal territories. A 9.6 cm right adrenal mass at SUV 18.5, consistent with metastatic disease. Given the PET/CT findings, her initial radiation was limited to a brief course of treatment, completed on 02/09/2019 to a total dose of 2400 cGy. Following completion of radiation, she began a course of chemotherapy with carboplatin/etoposide, cycle 1 day 1 on 02/13/2019. She completed that treatment without acute toxicity. On 02/26/2019 she was admitted to the hospital with severe neutropenia and thrombocytopenia. At that time she reported increased weakness and increased chest congestion and cough. She was not febrile and she was not having any active bleeding. Her chest x-ray, though, did show findings compatible with lingular pneumonia. She was treated with Neupogen and broad-spectrum antibiotic therapy. She was not transfused platelets, as she did not appear to have a significant bleeding tendency. She was discharged on 03/03/2019 with her absolute neutrophil count adequate at 3700 and her platelet count up to 32,000. As of her follow-up visit on 03/06/2019 her platelet count was still moderately decreased at 62,000, and her 2nd cycle of chemotherapy was delayed. She was able to continue with cycle 2 on 03/14/2019. It was administered with dose reductions and with Neulasta prophylactically. Restaging CT scans of the chest, abdomen, and pelvis on 04/09/2019 showed markedly decreased size of the left hilar mass with interval aeration of the left upper lobe. There was residual mediastinal and left hilar soft tissue opacity with subcarinal lymphadenopathy, residual tumor not excluded. The right adrenal gland nodule also appeared smaller. Coarse interstitial thickening was noted in the left upper lobe and there was new right middle and right lower lobe groundglass attenuation. With evidence of response by CT scan, she continued with cycle 3 on 04/11/2019 and with cycle 4 on 05/15/2019. During that time her neutrophil count and platelet count remained adequate, but she became increasingly anemic, requiring PRBC transfusion on 05/08/2019. Her restaging chest CT on 06/21/2019 showed stable mediastinal and left hilar soft tissue opacity. Enhancing anterior mediastinal AP window and precarinal soft tissue thickening also appeared unchanged from the prior study in April 2019. Subcarinal lymphadenopathy was stable at 10 mm. A 5 mm noncalcified right lower lobe pulmonary nodule at increased slightly in size. Interstitial infiltrates in the left upper lobe, lingula, and left lower lobe appeared stable. There were moderate to advanced chronic emphysematous changes. A right adrenal nodule was stable at 12 mm. Repeat head MRI on 2018 showed no evidence of metastatic disease to the brain. With those findings, she was referred to Dr. Golden for consolidation radiation. She completed treatment on 08/23/2019 to a total dose of 4600 cGy. Her medical history is otherwise significant for degenerative arthritis, hypothyroidism, hepatitis C, and anxiety/depression. She has history of smoking 1-2 packs of cigarettes daily. She has cut down. INTERIM HISTORY: Restaging chest CT on 10/12/2019 showed left upper and left lower lobe pneumonitis with variable appearance compared to the study from 06/21/2019. Small left pleural effusion and small pericardial effusion were increased from the prior exam. There was no stable treated appearance of the mediastinum and left hilum. There was no evidence of progressive or new lymphadenopathy and there was no evidence of a neoplastic mass lesion in the lungs. There was no evidence of progression of previous metastatic lesion to the right adrenal gland. A right breast nodule measuring 1.5cm appeared stable compared to the PET/CT from 02/03/2019, and it was noted to be FDG negative on that study. With those findings she continued on observation/expectant management. On 05/16/2020 she had presented to Dr. Guaman with persistent headache along with intermittent nausea/vomiting. Her head CT showed suspected metastases which included a 4.9 x 2.2 cm hemorrhagic lesion in the right parietal and occipital lobes and 1.1 cm lesion within the right caudate lobe. She was started on dexamethasone and she was referred to Dr. Montenegro. She began palliative whole brain radiation on 05/27/2020. She completed treatment on 06/09/2020 to a total dose of 3000 cGy. She tolerated the treatment well. She is seen for a follow-up visit. She complains that she feels tired, but she is able to do light work at home. ECOG score is 1. Her appetite is okay. She has no fever or night sweats. She has some sinus drainage and cough. She is swallowing okay. She does not complain of shortness of breath. She has a little bit of chest pain. She was having nausea on the dexamethasone, that is getting better. She has no other GI or complaints. She has pain in the area between her shoulders and she has lower back pain. She also has pain in her knees and wrists. She says her headaches have diminished with the radiation. She sometimes has dizziness and she sometimes has numbness/tingling. She has having significant problems with anxiety and depression. Medications: Advair Diskus 1 Puff(s) (of 250-50 mcg/dose) Aerosol Powder, Breath Activated Inhalation b.i.d. PRN, Albuterol Sulfate HFA 2 Puff(s) (of 108 (90 base) mcg/act) Aerosol, solution Inhalation q 6 hours, ALPRAZolam 1 Tablet (of 0.25 mg) Oral t.i.d., Citalopram Hydrobromide 1 Tablet (of 40 mg) Oral daily, Dexamethasone 1 (4 mg) Tablet Oral b.i.d., Flonase 1 Nilwood(s) (of 50 mcg/act) Suspension Nasal daily, Fludrocortisone Acetate 1 Tablet (of 0.1 mg) Oral daily, guaiFENesin-Codeine 10 mL (of 100-10 mg/5mL) Syrup Oral q 4 hours PRN, HYDROcodone-Acetaminophen 1 Tablet (of 10-325 mg) Oral q 4 hours PRN, Klor-Con 10 1 (10 meq) Tablet, controlled release Oral b.i.d., Lactulose 1 Pack Oral PRN, Levo-T 1 Tablet (of 25 mcg) Oral daily, Loratadine 1 Tablet (of 10 mg) Oral daily, Morphine Sulfate 1 Tablet (of 15 mg) Oral four times a day, Morphine Sulfate ER 1 Tablet (of 30 mg) Tablet, controlled release Oral q 12 hours, Naloxone HCl 1 Nilwood(s) (of 4 mg/0.1mL) Liquid Nasal, predniSONE 1 Tablet (of 10 mg) Oral daily, Protonix 1 Tablet (of 40 mg) Tablet, enteric coated Oral daily, Proventil HFA 1 Puff(s) (of 108 (90 base) mcg/act) Aerosol, solution Inhalation PRN, Reglan 1 Tablet (of 10 mg) Oral t.i.d., Senokot 3 Tablet (of 8.6 mg) Oral b.i.d. PRN Allergies: Erythromycin Base, Latex, Penicillins, Sulfa Antibiotics, and traMADol HCl. Review of Systems: Constitutional - She is feeling fatigued, but she is able to do some light housework. Her appetite is good and weight is stable. No fever, night sweats, or hot flashes. ECOG score is 1, ENMT - She has sinus congestion/drainage. She has soreness to her mouth and throat. No difficulty swallowing, Hematologic/Lymphatic - She bruises easily, Respiratory - No shortness of breath. She has a cough from sinus drainage. No pleuritic pain or hemoptysis, Cardiovascular - No angina pain. No palpitations, Gastrointestinal - She had nausea while taking dexamethasone but since stopping it Tuesday it has improved. No vomiting. No heartburn or acid reflux. No diarrhea or constipation. No blood in the stool or black stools, Genitourinary (F) - No dysuria or hematuria. No urinary frequency. No urgency or incontinence, Musculoskeletal - She has pain in her knees, wrists, and lower back, Integumentary - No skin complications, Neurologic - She still has mild headaches, but it has improved since radiation. She has occasional dizziness. No numbness or tingling. No other focal neurologic symptoms, Psychiatric - She has anxiety and depression. She is taking alprazolam and citalopram. No insomnia. Vital Signs: Performed on Jun 11, 2020 12:20 Height - 66.00 in Weight - 143.2 lbs (HIGH) BSA - 1.74 sq.m BMI - 23.11 Temperature - 97.4 F (LOW) Pulse - 109 /min (HIGH) Respiration - 18 /min BP - 110/80 mm(hg) O2 Sat - 98 % Pain - 5 Physical Examination: Constitutional - She appears somewhat weak generally, Eyes - Sclerae nonicteric. Conjunctivae clear, ENMT - No lesions noted in the oral cavity, Hematologic/Lymphatic - No cervical, clavicular, or axillary adenopathy, Respiratory - Lungs sound clear with diminished air movement bilaterally, Cardiovascular - Heart rhythm is regular. There is no murmur, gallop, or rub noted, Abdomen - Mildly distended but soft. Liver and spleen are not enlarged. There is no abdominal mass or ascites noted and there is no inguinal adenopathy, Extremities - No edema, Neurologic - She does not appear to have any focal neurologic deficit. Lab/Imaging: Test performed on Jun 11, 2020 11:27 Sodium 136 mmol/L Potassium 4.3 mmol/L Chloride 100 mmol/L CO2 28 mmol/L Anion Gap 12.3 BUN 14 mg/dL Creatinine 0.7 mg/dL Cr Clearance (Est) 92.02 mL/min eGFR 86.6 mL/min Glucose 94 mg/dL Calcium 8.4 mg/dL Protein, Total 5.9 g/dL Albumin 3.5 g/dL Globulin 2.4 g/dL Bilirubin, Total 0.3 mg/dL ALT (SGPT) 33 U/L AST (SGOT) 23 U/L Alkaline Phosphatase 85 IU/L WBC 11.9 10 3/uL RBC 4.89 10 6/uL HGB 14.9 g/dL HCT 46.0 % MCV 94.1 fL MCH 30.5 pg MCHC 32.4 g/dL RDW 13.8 % Platelet Count 157 10 3/cmm MPV 9.5 fL Neutrophils 10.65 10 3/uL Lymphocytes 0.5 10 3/uL Monocytes 0.3 10 3/uL Eosinophils 0.1 10 3/uL Basophils 0.0 10 3/uL Neutrophil % 89.8 % Lymphocyte % 3.9 % Monocyte % 2.5 % Eosinophil % 0.6 % Basophils % 0.3 % NRBC % 0 % Impression: 1. Patient with small cell carcinoma involving the mainstem bronchus of the left lung. By clinical evaluation her disease is stage IV (T2, N3, M1b) with PET/CT evidence of right adrenal metastasis. 2. There was associated left upper lobe and lingular atelectasis on her CT scan from 01/05/2019. 3. She reported having headache and vomiting, but her brain MRI showed no evidence for metastatic involvement. Her other medical illnesses include: 4. She has a history of hepatitis C, which apparently has not been treated. 5. Hypothyroidism. 6. Degenerative arthritis. 7. Chronic anxiety/depression. Due to involvement of the mainstem bronchus she began radiation urgently. In the setting metastatic disease the initial radiation was limited to a brief course of treatment, completed on 02/09/2019 to a total dose of 2400 cGy. She then began cycle 1 of carboplatin/etoposide chemotherapy on 02/13/2019. She had no acute toxicity with the chemotherapy. She did develop symptoms of radiation esophagitis, treated empirically with ranitidine and fluconazole. On 02/26/2019 she was admitted to the hospital with severe neutropenia and thrombocytopenia. She was not febrile, but her chest x-ray did show evidence of lingular pneumonia. She was treated Neupogen and broad-spectrum antibiotic coverage. She did not have bleeding, and she did not require platelet transfusion. Cycle 2 was delayed due to persistent thrombocytopenia. It was administered with dose reductions and with Neulasta prophylactically. She did have evidence of significant response by restaging CT scans on 04/09/2019. She then continued with cycle 3 on 04/11/2019 and with cycle 4 on 05/15/2019. She was tolerating treatment with acceptable toxicity, though she did require PRBC transfusion prior to cycle 4. Her restaging chest CT on 06/21/2019 showed stable mediastinal and left hilar soft tissue opacity. Enhancing anterior mediastinal AP window and precarinal soft tissue thickening also appeared unchanged from the prior study in April 2019. Subcarinal lymphadenopathy was stable at 10 mm. A 5 mm noncalcified right lower lobe pulmonary nodule at increased slightly in size. Interstitial infiltrates in the left upper lobe, lingula, and left lower lobe appeared stable. There were moderate to advanced chronic emphysematous changes. A right adrenal nodule was stable at 12 mm. Repeat head MRI on 2018 showed no evidence of metastatic disease to the brain. With those findings, she was referred to Dr. Golden for consolidation radiation. She completed treatment on 08/23/2019 to a total dose of 4600 cGy. She experienced significant side effects during the chemotherapy and radiation, but those had gradually resolved. During follow-up she had ongoing complaints of fatigue, and she had continued to have anxiety/depression. As of her follow-up visit in November 2019 she appeared stable clinically with no CT evidence of disease progression. On 05/16/2020 she had presented with Dr. Guaman with persistent headache and some nausea/vomiting. Her head CT showed lesions in the right parietal/occipital and right caudate lobes which were felt to be consistent with metastases. She was referred to Dr. Montenegro, and she is now completed palliative whole brain radiation. She has had improvement in the headache. She still has significant fatigue, and she also continues to have problems with anxiety/depression. Plan: She will be scheduled for restaging CT scans of the chest, abdomen, and pelvis and I will consider further treatment for her small cell cancer, depending on those results. In the meantime, she apparently was given a prescription for sertraline [address] Guaman to replace the citalopram, and she will now make that transition. I also will increase her alprazolam dosage to 0.5 mg 3 times daily as needed. Signed By: Sky Hernandez M.D. <<Signature on File>>
== END 2020-07-07 23:59 | disposition home or self-care (01) ==
LOC: ONCMED 05:24
PROVIDERS: PCP Family Medicine; Visit Provider Internal Medicine Medical Oncology
DX: Z51.0 Encounter for antineoplastic radiation therapy (principal); C34.02 Malignant neoplasm of left main bronchus; C79.71 Secondary malignant neoplasm of right adrenal gland; C79.31 Secondary malignant neoplasm of brain; G89.3 Neoplasm related pain (acute) (chronic); E03.9 Hypothyroidism, unspecified; M19.90 Unspecified osteoarthritis, unspecified site; F41.9 Anxiety disorder, unspecified; F32.9 Major depressive disorder, single episode, unspecified; Z86.19 Personal history of other infectious and parasitic diseases
CPT/HCPCS: 36591; 77336; 77387; 77412; 80053; 85025; 99214

== ENCOUNTER 2020-07-23 05:42 | Outpatient (RCR) | payer MEDICAID, SELFPAY ==
--- NOTE | 2020-07-16 12:20 | CT_ITS ---
WS: [id number] CT CHEST, ABDOMEN AND PELVIS WITH CONTRAST. HISTORY: SMALL CELL LUNG CANCER, ADRENAL GLAND TECHNIQUE: Contiguous 5 mm axial imaging performed through the chest, abdomen and pelvis with IV cont rast, oral contrast has been provided. Coronal and sagittal reformats chest. Coronal and sagittal ref ormats through the abdomen and pelvis. All CT scans at [facility] use at least one of the se dose optimization techniques: automated exposure control; mA and/or kV adjustment per patient size (includes targeted exams where dose is matched to clinical indication); or iterative reconstruction. CONTRAST: Omnipaque 300; 95 mL IV. DLP: 1716.63 mGycm COMPARISON: 01/14/2020, 04/09/[address]: Severe chronic emphysema. Partial volume loss and atelectasis in the LEFT lung. Overall con tinued slow improvement in the soft tissue opacification in the medial LEFT upper lung extending into the mediastinum. Interstitial thickening in the LEFT lower lobe has also slightly improved. There is a small LEFT pleural effusion which is unchanged. LEFT subclavian Port-A-Cath. Aberrant RIGHT subclavian artery. The soft tissue thickening surrounding the LEFT main pulmonary artery and the LEFT hilum continues to slowly improved. No new or increasing soft tissue masses or adenopathy. Heart size is normal. Small hiatal hernia. Abdomen CT: Liver, gallbladder, pancreas and spleen are negative. No adrenal mass. There is very mild thickening of the RIGHT adrenal gland which is not changed. Cortical cyst 8 mm upper pole RIGHT kidn ey. No hydronephrosis. There is moderate fecal retention throughout the RIGHT colon. No obstructive pattern. Normal appendix . No ascites or adenopathy. Pelvic CT: Normally distended urinary bladder. Prior hysterectomy. No osteoblastic or osteolytic bone disease identified. CT/CT chest abd pel w con* IMPRESSION: 1. Continued interval slow improvement in the post treatment changes and airsp agnieszka disease in the LEFT upper and LEFT lower lobe since 01/14/2020. No new or pro gression of adenopathy. 2. Severe chronic emphysema. 3. No metastatic disease to the liver. 4. Very mild nodularity involving the RIGHT adrenal gland is stable. 5. Prior hysterectomy.
[2020-07-16] MEDS: iohexol 300 mg/mL 50 mL Btl PO (13:08)
[2020-07-16] MEDS: iohexol 300 mg/mL 100 mL Btl IV (13:36)
--- NOTE | 2020-07-22 | MR_ITS ---
WS: [id number] MRI BRAIN WITH AND WITHOUT CONTRAST HISTORY: SECONDARY MALIGNANT NEOPLASM OF BRAIN, COMPARISON: 06/29/2019, CT head 05/16/2020 TECHNIQUE: Multiplanar imaging performed through the brain with Prohance 17 ml's IV. No preradiation treatment MRI brain is present for evaluation. There is a noncontrast head CT dated which is identified metastatic lesion in the RIGHT occipital lobe. On the T1 noncontrast sequence there is a mass with increased signal centered in the RIGHT occipital lobe measuring 4.6 x 2.4 x 2.8 cm. Mass extends to abut the corpus callosum and the posterior falx. T here is not a lot of surrounding edema. There is a small amount of surrounding hemosiderin deposition . This is in the area the previously described mass seen on the CT from 05/16/2020. By history patient 's undergone interval whole brain radiation. On the postcontrast sequences there is some increased en hancement and nodularity within this treated brain lesion. Some of the areas of increased T1 signal a re probably due to the treated neoplasm. Favor there still is abnormal enhancement. No additional There is no hydrocephalus or midline shift. Dural venous sinuses are normal. Paranasal sinuses: Well aerated with no significant disease. Mastoid air cells: Normal. Calvarium and scalp: Normal. MR/MR head wo/w con [id number] IMPRESSION: 1. Mass centered in the RIGHT occipital lobe measures 4.6 x 2.4 x 2.8 cm. No p rior MRI for comparison in which this mass was described. There is a CT from 08/2020 which described the mass. 2. Abnormal T1, noncontrast signal in the RIGHT occipital mass is probably due to a partially treated neoplasm. On the postcontrast sequences there does appe ar to be some globular enhancement within the periphery of the RIGHT occipital mass. I suspect this is a partially treated tumor with some residual tumor. No new areas of metastatic disease. Recommend short-term MRI brain with contrast f ollow-up, 3-4 weeks. 3. No hydrocephalus or midline shift.
--- NOTE | 2020-07-24 10:14 | ONCRAD EPV_ITS ---
Radiation Oncology Established Patient Visit Patient: Yazmin Lewis [id number] : 1965 Age: 55 Sex: Female Dictated by: Dr. Garry Montenegro Date of Service: 07/23/2020 Referring Physician(s) : Nghia Guaman Diagnosis: Metastatic small cell lung carcinoma involving the mainstem bronchus of the left lung, stage IV (T2, N3, M1b) with PET/CT evidence of right adrenal gland metastasis. Treatment rendered: -) XRT: 24 Gy in 6 fractions to the left lung (02/02/2019-02/09/2019) -) 4 cycles of systemic chemotherapy (02/13/2019-05/15/2019) -) XRT: 46 Gy in 23 fractions to the left lung (07/24/2019-08/23/2019) -) Whole brain radiation therapy to a total dose of 30 Gy in 10 fractions (05/27/2020-06/09/2020) Current History: The patient is seen in follow-up today approximately 1 month after completing whole brain radiation therapy. She reports occasional headaches which self resolve, occasional nausea in the morning which self resolves, no seizures, no new bone pain, and no progressive shortness of breath. She does report a pain in her left breast which occurs 2-3 times per day, but this is well managed with pain medication. A posttreatment MRI of the brain (07/22/2020 versus prior MRI 06/29/2019, and prior CT of the head 05/16/2020) was completed. It revealed a 4.6 x 2.4 x 2.8 cm right occipital lobe mass with minimal vasogenic edema. Per personal review of this MRI of the brain, an MRI follow-up of 3 months is more clinically relevant than the recommended MRI brain follow-up over 3 to 4 weeks (per the reading radiologist). Current Medications: Advair Diskus, albuterol Sulfate HFA, aLPRAZolam, aLPRAZolam, benzonatate, cARBOplatin, ciprofloxacin HCl, dexamethasone, dexamethasone, dexamethasone Sodium Phosphate, etoposide, first-Mouthwash BLM, flonase, fludrocortisone Acetate, fludrocortisone Acetate, guaiFENesin-Codeine, haloperidol, hYDROcodone-Acetaminophen, klor-Con 10, klor-Con 10, lactulose, lactulose, levo-T, loratadine, lORazepam, marinol, metroNIDAZOLE, morphine Sulfate, morphine Sulfate, morphine Sulfate ER, morphine Sulfate ER, naloxone HCl, ondansetron HCl, palonosetron HCl, pantoprazole Sodium, predniSONE, predniSONE, prochlorperazine Maleate, protonix, protonix, proventil HFA, raNITIdine HCl, reglan, reglan, senna S, senokot, sSD, sucralfate, zofran ODT. Allergies: Latex, Penicillins, Sulfa Antibiotics, traMADol HCl and Erythromycin Base. Current Complaints / Review of Systems: Constitutional - Complains of severe fatigue. Denies lack of appetite, fever, night sweats and change in weight. Eyes - Complains of photophobia associated with all bright light sources. Denies blurred vision but has decreased vision in both eyes and double vision. ENMT - Complains of altered taste. Denies dysphagia, ear pain, mouth dryness and stomatitis. Neck - Denies neck pain. Integumentary - Denies rash. Breasts - Complains of pain in the left breast that is described as a sharp pain that happens 2 to 3 times per day. Cardiovascular - Complains of edema in the face and both feet. Denies arrhythmias and chest pain. Respiratory - Complains of mild dyspnea and happens in the morning. Denies cough, hemoptysis and wheezing. Gastrointestinal - Complains of nausea occasionally. Complains of occasional vomiting. Denies abdominal pain, constipation, diarrhea, heartburn / dyspepsia and melena / GI bleeding. Genitourinary (F) - Denies dysuria, frequency, urgency, vaginal discharge / bleeding and vaginal spotting. Musculoskeletal - Complains of bone pain in both hips and knees. Complains of joint pain in both knees and back. Complains of generalized muscle weakness. Neurologic - Complains of disorientation to time, place, and person. Complains of frequent dizziness that occurs upon sitting to standing. Complains of abnormal gait in which she feels off balanced with walking. Complains of moderate headaches and has one about 1 to 2 times per day and they go away without taking any pain medication. Complains of insomnia characterized by waking frequently during the night. Endocrine - Complains of thyroid disease. Denies diabetes. Hematologic/Lymphatic - Denies tender or enlarged lymph nodes.. Vital Signs: Performed on 07/23/2020 9:59 AM BMI - 24.146 kg/m2 (high), Height - 66.00 in, Weight - 149.6 lbs, Temperature - 98.2 f, Pulse - 95, Respiration - 18, O2 Sat - 96 %, Pain - 5 and BP - 110/ 77 mm(hg). Physical Exam: General: Alert and oriented x 3. No acute distress. HEENT: Normocephalic, atraumatic. Extraocular Movements Intact: Pupils Equal, Round, Reactive to Light and Accommodation: Sclerae anicteric. Oral cavity is clear without lesions, masses or ulcers. NECK: Supple without supraclavicular or jugular lymphadenopathy. LUNGS: Clear to auscultation bilaterally without rales, rhonchi or wheeze. HEART: Regular rate and rhythm, normal S1 and S2 without murmur, gallop or rub. MUSCULOSKELETAL: No tenderness or percussion pain over the axial skeleton, scapulae or pelvis. EXTREMITIES: No peripheral edema is identified. Limited motor and sensory examination are grossly intact and symmetric bilaterally. NEUROLOGIC: Cranial nerves II ???XII are grossly intact. Performance Status: 2 - Ambulatory/capable of all self-care, unable to perform any work activities. Up and about more than 50% of waking hours. (ECOG) Lab: None pending. Test performed on 06/11/2020 11:27 AM WBC - 11.9 10 3/ul (high), Neutrophils - 10.65 10 3/ul (high), Lymphocytes - 0.5 10 3/ul (low), eGFR - 86.6 ml/min (low), Calcium - 8.4 mg/dl (low) and Protein, Total - 5.9 g/dl (low). Pathology: Primary, c79.31 - secondary malignant neoplasm of brain, Diagnosed 05/16/2020 (active), Primary, c79.71 - secondary malignant neoplasm of right adrenal gland, Diagnosed 02/13/2019 (active), Primary, c34.02 - malignant neoplasm of left main bronchus, Diagnosed 01/22/2019 (active) stage iv, t2, n3, m1b and Secondary, g89.3 - neoplasm related pain (acute) (chronic), Diagnosed 01/31/2019 (active). Imaging: See HPI Impression: The patient is a 55-year-old female with metastatic small cell lung carcinoma status post palliative radiation therapy to the lung, 4 cycles of systemic chemotherapy, and whole brain radiation therapy to a total dose of 30 Gy in 10 fractions completed 06/2020. The patient is seen in follow-up approximately 1 month after completing radiation therapy to the whole brain. She has been weaned off of dexamethasone, and she has no worsening symptoms. I plan to follow-up in 3 months with a repeat MRI of the brain. Radiographic findings demonstrated on the most recent MRI of the brain (07/22/2020) are most likely associated with posttreatment effect in comparison to a pretreatment CT of the brain. Given this patient's current clinical scenario, a repeat MRI of the brain in 3-4 weeks would be of little clinical value. If intracranial progression is truly occurring 30 days after completing whole brain radiation therapy, then this patient's future treatment course should consist of best supportive care/hospice. The patient was recommended to continue following up with medical oncology as previously scheduled. Signed by: Garry Montenegro MD 07/24/2020 10:13:20 AM <<Signature on File>> CPT Code: CPT Code:
== END 2020-08-06 23:59 | disposition home or self-care (01) ==
LOC: ONCMED 05:42
PROVIDERS: PCP Family Medicine; Visit Provider Radiology Radiation Oncology
DX: C34.02 Malignant neoplasm of left main bronchus (principal); C79.71 Secondary malignant neoplasm of right adrenal gland; C79.31 Secondary malignant neoplasm of brain; J43.9 Emphysema, unspecified; Z92.3 Personal history of irradiation
CPT/HCPCS: 70553; 71260; 74177; A9579; Q9967

== ENCOUNTER 2020-08-26 15:40 | Outpatient (CLI) | payer MEDICAID, SELFPAY ==
--- NOTE | 2020-09-01 09:55 | ONC FU_ITS ---
Dr. Hernandez Patient Follow-Up Note Patient: Debbie Arce Unit #: [id number]: 1965 Dicatated By: Sky Hernandez M.D.Date of Visit:Aug 26, 2020 Onc Med Follow-up/Prog Note Chief Complaint: Lung cancer. 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 She had been treated for pneumonia in October 2018 and she just never really got better. She had worsening shortness of breath and cough and she was then found to have an abnormal chest x-ray. Further evaluation with chest CT on 01/05/2019 showed prominent sized confluent lobulated masslike lesion within the AP window continuous with larger masslike lesion within the precarinal and subcarinal space. The lateral margin of the precarinal mass was noted to extend into the right paratracheal space. There were a few other mildly enlarged lymph nodes noted within the superior right paratracheal space. There was contiguous soft tissue thickening of the left hilar region. There was a mildly enlarged right hilar lymph node. The majority of the left upper lobe and lingula were occupied with parenchymal consolidation, at least partially reflective of atelectasis. There was no pleural effusion noted. There was trace pericardial effusion. A 3.4 cm right adrenal mass was felt to be suspicious for metastasis. Also noted was a 1 cm nodule within the right upper lobe and a smaller 8 mm nodule within the central aspect of the right upper lobe adjacent to bronchovascular structures. On 01/22/2019 she underwent bronchoscopy with biopsy of left mainstem endobronchial mass and EBUS with FNA biopsy of station 10R, station 4R, and station 7 lymph nodes. The bronchoscopy showed a fleshy polypoid growth with necrotic surface rising about half a centimeter from the left mainstem extending along the anterior and lateral mainstem wall into the left upper lobe and left lower lobe. Biopsies of the endobronchial mass and of the station 4R lymph node showed small cell carcinoma. She began urgent radiation to the left lung on 02/02/2019. Her staging PET/CT on 02/03/2019 showed large left hilar mass measuring 6.0 x 9.1 cm with SUV 16.8. There was complete atelectasis of the left upper lobe. A 1.2 cm right upper lobe nodule at SUV 6.9, consistent with metastatic disease. An FDG positive right upper hilar lymph node was also likely metastatic. There were additional malignant lymph nodes in the superior mediastinum, pretracheal and subcarinal territories. A 9.6 cm right adrenal mass at SUV 18.5, consistent with metastatic disease. Given the PET/CT findings, her initial radiation was limited to a brief course of treatment, completed on 02/09/2019 to a total dose of 2400 cGy. Following completion of radiation, she began a course of chemotherapy with carboplatin/etoposide, cycle 1 day 1 on 02/13/2019. She completed that treatment without acute toxicity. On 02/26/2019 she was admitted to the hospital with severe neutropenia and thrombocytopenia. At that time she reported increased weakness and increased chest congestion and cough. She was not febrile and she was not having any active bleeding. Her chest x-ray, though, did show findings compatible with lingular pneumonia. She was treated with Neupogen and broad-spectrum antibiotic therapy. She was not transfused platelets, as she did not appear to have a significant bleeding tendency. She was discharged on 03/03/2019 with her absolute neutrophil count adequate at 3700 and her platelet count up to 32,000. As of her follow-up visit on 03/06/2019 her platelet count was still moderately decreased at 62,000, and her 2nd cycle of chemotherapy was delayed. She was able to continue with cycle 2 on 03/14/2019. It was administered with dose reductions and with Neulasta prophylactically. Restaging CT scans of the chest, abdomen, and pelvis on 04/09/2019 showed markedly decreased size of the left hilar mass with interval aeration of the left upper lobe. There was residual mediastinal and left hilar soft tissue opacity with subcarinal lymphadenopathy, residual tumor not excluded. The right adrenal gland nodule also appeared smaller. Coarse interstitial thickening was noted in the left upper lobe and there was new right middle and right lower lobe groundglass attenuation. With evidence of response by CT scan, she continued with cycle 3 on 04/11/2019 and with cycle 4 on 05/15/2019. During that time her neutrophil count and platelet count remained adequate, but she became increasingly anemic, requiring PRBC transfusion on 05/08/2019. Her restaging chest CT on 06/21/2019 showed stable mediastinal and left hilar soft tissue opacity. Enhancing anterior mediastinal AP window and precarinal soft tissue thickening also appeared unchanged from the prior study in April 2019. Subcarinal lymphadenopathy was stable at 10 mm. A 5 mm noncalcified right lower lobe pulmonary nodule at increased slightly in size. Interstitial infiltrates in the left upper lobe, lingula, and left lower lobe appeared stable. There were moderate to advanced chronic emphysematous changes. A right adrenal nodule was stable at 12 mm. Repeat head MRI on 2018 showed no evidence of metastatic disease to the brain. With those findings, she was referred to Dr. Golden for consolidation radiation. She completed treatment on 08/23/2019 to a total dose of 4600 cGy. Her medical history is otherwise significant for degenerative arthritis, hypothyroidism, hepatitis C, and anxiety/depression. She has history of smoking 1-2 packs of cigarettes daily. She has cut down. INTERIM HISTORY: Restaging chest CT on 10/12/2019 showed left upper and left lower lobe pneumonitis with variable appearance compared to the study from 06/21/2019. Small left pleural effusion and small pericardial effusion were increased from the prior exam. There was no stable treated appearance of the mediastinum and left hilum. There was no evidence of progressive or new lymphadenopathy and there was no evidence of a neoplastic mass lesion in the lungs. There was no evidence of progression of previous metastatic lesion to the right adrenal gland. A right breast nodule measuring 1.5cm appeared stable compared to the PET/CT from 02/03/2019, and it was noted to be FDG negative on that study. With those findings she continued on observation/expectant management. On 05/16/2020 she had presented to Dr. Guaman with persistent headache along with intermittent nausea/vomiting. Her head CT showed suspected metastases which included a 4.9 x 2.2 cm hemorrhagic lesion in the right parietal and occipital lobes and 1.1 cm lesion within the right caudate lobe. She was started on dexamethasone and she was referred to Dr. Montenegro. She began palliative whole brain radiation on 05/27/2020. She completed treatment on 06/09/2020 to a total dose of 3000 cGy. She tolerated the treatment well. Restaging CT scans of the chest, abdomen, and pelvis 07/16/2020 showed continued interval slow improvement in the posttreatment changes and airspace disease in the left upper and left lower lobe compared to the January 2020 study. There was no new or progressed adenopathy. Very mild nodularity involving the right adrenal gland appeared stable. There was no evidence of other metastatic disease. She is seen for a follow-up visit. She has not been feeling good generally. She complains that she is very tired. Her activity has been very limited. She is mostly sedentary. ECOG score is 3. She does not have good appetite, but she says that she does eat. She has lost weight. She does not have fever or night sweats. She has shortness of breath with activity. She has nonproductive cough. She has sharp stabbing pains in her chest. She has had some nausea. Bowel function has been okay. She has noticed a change in the color of her urine, and she has been having lower back pain. She does not complain of headache. She does have some dizziness. She has no focal neurologic symptoms. Medications: Advair Diskus 1 Puff(s) (of 250-50 mcg/dose) Aerosol Powder, Breath Activated Inhalation b.i.d. PRN, Albuterol Sulfate HFA 2 Puff(s) (of 108 (90 base) mcg/act) Aerosol, solution Inhalation q 6 hours, ALPRAZolam 1 Tablet (of 0.50 mg) Oral t.i.d., Flonase 1 Elgin(s) (of 50 mcg/act) Suspension Nasal daily, Fludrocortisone Acetate 1 Tablet (of 0.1 mg) Oral daily, guaiFENesin-Codeine 10 mL (of 100-10 mg/5mL) Syrup Oral q 4 hours PRN, HYDROcodone-Acetaminophen 1 Tablet (of 10-325 mg) Oral q 4 hours PRN, Klor-Con 10 1 (10 meq) Tablet, controlled release Oral b.i.d., Lactulose 1 Pack Oral PRN, Levo-T 1 Tablet (of 25 mcg) Oral daily, Loratadine 1 Tablet (of 10 mg) Oral daily, Morphine Sulfate 1 Tablet (of 15 mg) Oral four times a day, Morphine Sulfate ER 1 Tablet (of 30 mg) Tablet, controlled release Oral q 12 hours, Naloxone HCl 1 Elgin(s) (of 4 mg/0.1mL) Liquid Nasal, predniSONE 1 Tablet (of 10 mg) Oral daily, Protonix 1 Tablet (of 40 mg) Tablet, enteric coated Oral daily, Proventil HFA 1 Puff(s) (of 108 (90 base) mcg/act) Aerosol, solution Inhalation PRN, Reglan 1 Tablet (of 10 mg) Oral t.i.d., Senokot 3 Tablet (of 8.6 mg) Oral b.i.d. PRN Allergies: Erythromycin Base, Latex, Penicillins, Sulfa Antibiotics, and traMADol HCl. Review of Systems: Constitutional - She is very tired today. She reports that she has been more tired and is mostly in bed or sitting. Her appetite is poor but she is able to eat. Her weight is down nearly 17 pounds from last months visit. No fever, night sweats, or hot flashes. ECOG score is 3, ENMT - No sinus congestion/drainage. No mouth sores. No sore throat or difficulty swallowing, Hematologic/Lymphatic - No abnormal bruising or bleeding, Respiratory - She gets short of breath with activity. She has a non-productive cough. No pleuritic pain or hemoptysis, Cardiovascular - She has been having chest pain. She describes it as a sharp stabbing pain. No palpitations, Gastrointestinal - She has nausea. No heartburn or acid reflux. No diarrhea or constipation. No blood in the stool or black stools, Genitourinary (F) - She has noticed a change in her urine color. No dysuria or hematuria. No urinary frequency. No urgency or incontinence, Musculoskeletal - She has low back pain, Integumentary - No skin complications, Neurologic - No headache. She has dizziness. No numbness or tingling. No other focal neurologic symptoms, Psychiatric - She is taking alprazolam and sertraline for anxiety/depression. She is having alot of difficulty sleeping because of pain. Vital Signs: Performed on Aug 26, 2020 13:54 Height - 66.00 in Weight - 132 lbs (LOW) BSA - 1.68 sq.m BMI - 21.31 Temperature - 99 F (HIGH) Pulse - 95 /min Respiration - 16 /min BP - 92/60 mm(hg) O2 Sat - 96 % Pain - 8 Physical Examination: Constitutional - She appears somewhat weak generally, Eyes - Sclerae nonicteric. Conjunctivae clear, ENMT - No lesions noted in the oral cavity, Hematologic/Lymphatic - No cervical, clavicular, or axillary adenopathy, Respiratory - Lungs sound clear with diminished air movement bilaterally, Cardiovascular - Heart rhythm is regular. There is no murmur, gallop, or rub noted, Abdomen - Soft. Liver and spleen are not enlarged. There is no abdominal mass or ascites noted and there is no inguinal adenopathy, Extremities - No edema, Neurologic - No focal neurologic deficits noted. Impression: 1. Patient with small cell carcinoma involving the mainstem bronchus of the left lung. By clinical evaluation her disease is stage IV (T2, N3, M1b) with PET/CT evidence of right adrenal metastasis. 2. There was associated left upper lobe and lingular atelectasis on her CT scan from 01/05/2019. 3. She reported having headache and vomiting, but her brain MRI showed no evidence for metastatic involvement. Her other medical illnesses include: 4. She has a history of hepatitis C, which apparently has not been treated. 5. Hypothyroidism. 6. Degenerative arthritis. 7. Chronic anxiety/depression. Due to involvement of the mainstem bronchus she began radiation urgently. In the setting metastatic disease the initial radiation was limited to a brief course of treatment, completed on 02/09/2019 to a total dose of 2400 cGy. She then began cycle 1 of carboplatin/etoposide chemotherapy on 02/13/2019. She had no acute toxicity with the chemotherapy. She did develop symptoms of radiation esophagitis, treated empirically with ranitidine and fluconazole. On 02/26/2019 she was admitted to the hospital with severe neutropenia and thrombocytopenia. She was not febrile, but her chest x-ray did show evidence of lingular pneumonia. She was treated Neupogen and broad-spectrum antibiotic coverage. She did not have bleeding, and she did not require platelet transfusion. Cycle 2 was delayed due to persistent thrombocytopenia. It was administered with dose reductions and with Neulasta prophylactically. She did have evidence of significant response by restaging CT scans on 04/09/2019. She then continued with cycle 3 on 04/11/2019 and with cycle 4 on 05/15/2019. She was tolerating treatment with acceptable toxicity, though she did require PRBC transfusion prior to cycle 4. Her restaging chest CT on 06/21/2019 showed stable mediastinal and left hilar soft tissue opacity. Enhancing anterior mediastinal AP window and precarinal soft tissue thickening also appeared unchanged from the prior study in April 2019. Subcarinal lymphadenopathy was stable at 10 mm. A 5 mm noncalcified right lower lobe pulmonary nodule at increased slightly in size. Interstitial infiltrates in the left upper lobe, lingula, and left lower lobe appeared stable. There were moderate to advanced chronic emphysematous changes. A right adrenal nodule was stable at 12 mm. Repeat head MRI on 2018 showed no evidence of metastatic disease to the brain. With those findings, she was referred to Dr. Golden for consolidation radiation. She completed treatment on 08/23/2019 to a total dose of 4600 cGy. She experienced significant side effects during the chemotherapy and radiation, but those had gradually resolved. During follow-up she had ongoing complaints of fatigue, and she had continued to have anxiety/depression. As of her follow-up visit in November 2019 she appeared stable clinically with no CT evidence of disease progression. On 05/16/2020 she had presented with Dr. Guaman with persistent headache and some nausea/vomiting. Her head CT showed lesions in the right parietal/occipital and right caudate lobes which were felt to be consistent with metastases. She was referred to Dr. Montenegro, and she completed palliative whole brain radiation. She had improvement in the headache with the radiation. She continues, though, has multiple complaints including anorexia, weakness/fatigue, shortness of breath, and pain. Her performance status is declining. Plan: In the absence of any evidence of systemic disease progression, she will be followed on observation/symptomatic management. At this point I will have her increase the prednisone to 10 mg twice daily and I will have her stop the metoclopramide. Her evening dose of extended release morphine will be increased to 60 mg. Her other medications remain the same. I will recheck her CBC and [place] profile today I also will check urinalysis/culture. I will tentatively plan a follow-up visit in 1 month. Signed By: Sky Hernandez M.D. <<Signature on File>>
== END 2020-08-26 15:41 | disposition home or self-care (01) ==
LOC: ONCMED 15:41
PROVIDERS: PCP Family Medicine; Visit Provider Internal Medicine Medical Oncology
DX: C34.02 Malignant neoplasm of left main bronchus (principal); C79.51 Secondary malignant neoplasm of bone; C79.31 Secondary malignant neoplasm of brain; G89.3 Neoplasm related pain (acute) (chronic); E03.9 Hypothyroidism, unspecified; M19.90 Unspecified osteoarthritis, unspecified site; F41.9 Anxiety disorder, unspecified; F32.9 Major depressive disorder, single episode, unspecified; Z86.19 Personal history of other infectious and parasitic diseases
CPT/HCPCS: 99214

== ENCOUNTER 2020-09-23 09:25 | Outpatient (CLI) | payer MEDICAID, SELFPAY ==
--- NOTE | 2020-09-23 10:22 | ONC FU_ITS ---
Dr. Hernandez Patient Follow-Up Note Patient: Debbie Arce Unit #: [id number]: 1965 Dicatated By: Sky Hernandez M.D.Date of Visit:Sep 23, 2020 Onc Med Follow-up/Prog Note Chief Complaint: Lung cancer. 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 She had been treated for pneumonia in October 2018 and she just never really got better. She had worsening shortness of breath and cough and she was then found to have an abnormal chest x-ray. Further evaluation with chest CT on 01/05/2019 showed prominent sized confluent lobulated masslike lesion within the AP window continuous with larger masslike lesion within the precarinal and subcarinal space. The lateral margin of the precarinal mass was noted to extend into the right paratracheal space. There were a few other mildly enlarged lymph nodes noted within the superior right paratracheal space. There was contiguous soft tissue thickening of the left hilar region. There was a mildly enlarged right hilar lymph node. The majority of the left upper lobe and lingula were occupied with parenchymal consolidation, at least partially reflective of atelectasis. There was no pleural effusion noted. There was trace pericardial effusion. A 3.4 cm right adrenal mass was felt to be suspicious for metastasis. Also noted was a 1 cm nodule within the right upper lobe and a smaller 8 mm nodule within the central aspect of the right upper lobe adjacent to bronchovascular structures. On 01/22/2019 she underwent bronchoscopy with biopsy of left mainstem endobronchial mass and EBUS with FNA biopsy of station 10R, station 4R, and station 7 lymph nodes. The bronchoscopy showed a fleshy polypoid growth with necrotic surface rising about half a centimeter from the left mainstem extending along the anterior and lateral mainstem wall into the left upper lobe and left lower lobe. Biopsies of the endobronchial mass and of the station 4R lymph node showed small cell carcinoma. She began urgent radiation to the left lung on 02/02/2019. Her staging PET/CT on 02/03/2019 showed large left hilar mass measuring 6.0 x 9.1 cm with SUV 16.8. There was complete atelectasis of the left upper lobe. A 1.2 cm right upper lobe nodule at SUV 6.9, consistent with metastatic disease. An FDG positive right upper hilar lymph node was also likely metastatic. There were additional malignant lymph nodes in the superior mediastinum, pretracheal and subcarinal territories. A 9.6 cm right adrenal mass at SUV 18.5, consistent with metastatic disease. Given the PET/CT findings, her initial radiation was limited to a brief course of treatment, completed on 02/09/2019 to a total dose of 2400 cGy. Following completion of radiation, she began a course of chemotherapy with carboplatin/etoposide, cycle 1 day 1 on 02/13/2019. She completed that treatment without acute toxicity. On 02/26/2019 she was admitted to the hospital with severe neutropenia and thrombocytopenia. At that time she reported increased weakness and increased chest congestion and cough. She was not febrile and she was not having any active bleeding. Her chest x-ray, though, did show findings compatible with lingular pneumonia. She was treated with Neupogen and broad-spectrum antibiotic therapy. She was not transfused platelets, as she did not appear to have a significant bleeding tendency. She was discharged on 03/03/2019 with her absolute neutrophil count adequate at 3700 and her platelet count up to 32,000. As of her follow-up visit on 03/06/2019 her platelet count was still moderately decreased at 62,000, and her 2nd cycle of chemotherapy was delayed. She was able to continue with cycle 2 on 03/14/2019. It was administered with dose reductions and with Neulasta prophylactically. Restaging CT scans of the chest, abdomen, and pelvis on 04/09/2019 showed markedly decreased size of the left hilar mass with interval aeration of the left upper lobe. There was residual mediastinal and left hilar soft tissue opacity with subcarinal lymphadenopathy, residual tumor not excluded. The right adrenal gland nodule also appeared smaller. Coarse interstitial thickening was noted in the left upper lobe and there was new right middle and right lower lobe groundglass attenuation. With evidence of response by CT scan, she continued with cycle 3 on 04/11/2019 and with cycle 4 on 05/15/2019. During that time her neutrophil count and platelet count remained adequate, but she became increasingly anemic, requiring PRBC transfusion on 05/08/2019. Her restaging chest CT on 06/21/2019 showed stable mediastinal and left hilar soft tissue opacity. Enhancing anterior mediastinal AP window and precarinal soft tissue thickening also appeared unchanged from the prior study in April 2019. Subcarinal lymphadenopathy was stable at 10 mm. A 5 mm noncalcified right lower lobe pulmonary nodule at increased slightly in size. Interstitial infiltrates in the left upper lobe, lingula, and left lower lobe appeared stable. There were moderate to advanced chronic emphysematous changes. A right adrenal nodule was stable at 12 mm. Repeat head MRI on 2018 showed no evidence of metastatic disease to the brain. With those findings, she was referred to Dr. Golden for consolidation radiation. She completed treatment on 08/23/2019 to a total dose of 4600 cGy. Her medical history is otherwise significant for degenerative arthritis, hypothyroidism, hepatitis C, and anxiety/depression. She has history of smoking 1-2 packs of cigarettes daily. She has cut down. INTERIM HISTORY: Restaging chest CT on 10/12/2019 showed left upper and left lower lobe pneumonitis with variable appearance compared to the study from 06/21/2019. Small left pleural effusion and small pericardial effusion were increased from the prior exam. There was no stable treated appearance of the mediastinum and left hilum. There was no evidence of progressive or new lymphadenopathy and there was no evidence of a neoplastic mass lesion in the lungs. There was no evidence of progression of previous metastatic lesion to the right adrenal gland. A right breast nodule measuring 1.5cm appeared stable compared to the PET/CT from 02/03/2019, and it was noted to be FDG negative on that study. With those findings she continued on observation/expectant management. On 05/16/2020 she had presented to Dr. Guaman with persistent headache along with intermittent nausea/vomiting. Her head CT showed suspected metastases which included a 4.9 x 2.2 cm hemorrhagic lesion in the right parietal and occipital lobes and 1.1 cm lesion within the right caudate lobe. She was started on dexamethasone and she was referred to Dr. Montenegro. She began palliative whole brain radiation on 05/27/2020. She completed treatment on 06/09/2020 to a total dose of 3000 cGy. She tolerated the treatment well. Restaging CT scans of the chest, abdomen, and pelvis 07/16/2020 showed continued interval slow improvement in the posttreatment changes and airspace disease in the left upper and left lower lobe compared to the January 2020 study. There was no new or progressed adenopathy. Very mild nodularity involving the right adrenal gland appeared stable. There was no evidence of other metastatic disease. She was seen for follow-up visit on 08/26/2020. She had very marginal performance status. Given the CT findings, we opted to just continue with observation/symptomatic management. She is seen for a follow-up visit. She claims that she has very little energy, and her activity is very limited. ECOG score is 3. Appetite has been okay. She does not have fever or night sweats. She had multiple side effects with prednisone at 10 mg twice daily, including swelling, vision impairment, poor balance, and increased anxiety. She has been doing better at 10 mg once daily. She is sometimes short of breath. She had cough, but it is getting better. She has some pain on the left side of the chest and substernal area. She also reports having episodes of tingly pains going around the left side of the chest and sometimes to the right chest area. These occur at least once or twice a day and sometimes at night and they typically last about 15 minutes. She has nausea every day she also complains that the prednisone gives her gas. Bowel function has been fine. Bladder function has improved after treatment for urinary tract infection, though she still has some frequency and urgency. She also reports having pain in her back and left shoulder. She sometimes has breakthrough pain during the night. She does not complain of headache. She is sometimes off balance. She has no numbness/paresthesia or other focal neurologic symptoms. She has had anxiety with the prednisone, but she says her depression is better. She sleeps okay other than the pain at night. Medications: Advair Diskus 1 Puff(s) (of 250-50 mcg/dose) Aerosol Powder, Breath Activated Inhalation b.i.d. PRN, Albuterol Sulfate HFA 2 Puff(s) (of 108 (90 base) mcg/act) Aerosol, solution Inhalation q 6 hours, ALPRAZolam 1 Tablet (of 0.50 mg) Oral t.i.d., Flonase 1 Monrovia(s) (of 50 mcg/act) Suspension Nasal daily, Fludrocortisone Acetate 1 Tablet (of 0.1 mg) Oral daily, guaiFENesin-Codeine 10 mL (of 100-10 mg/5mL) Syrup Oral q 4 hours PRN, HYDROcodone-Acetaminophen 1 Tablet (of 10-325 mg) Oral q 4 hours PRN, Klor-Con 10 1 (10 meq) Tablet, controlled release Oral b.i.d., Lactulose 1 Pack Oral PRN, Levo-T 1 Tablet (of 25 mcg) Oral daily, Loratadine 1 Tablet (of 10 mg) Oral daily, Morphine Sulfate 1 Tablet (of 15 mg) Oral four times a day, Morphine Sulfate ER 1 Tablet (of 30 mg) Tablet, controlled release Oral q 12 hours, Naloxone HCl 1 Monrovia(s) (of 4 mg/0.1mL) Liquid Nasal, predniSONE 1 Tablet (of 10 mg) Oral daily, Protonix 1 Tablet (of 40 mg) Tablet, enteric coated Oral daily, Proventil HFA 1 Puff(s) (of 108 (90 base) mcg/act) Aerosol, solution Inhalation PRN, Reglan 1 Tablet (of 10 mg) Oral t.i.d., Senokot 3 Tablet (of 8.6 mg) Oral b.i.d. PRN Allergies: Erythromycin Base, Latex, Penicillins, Sulfa Antibiotics, and traMADol HCl. Review of Systems: Constitutional - He has very little energy, and her activity is very limited. She is mostly sedentary. Her appetite has been okay. She does not have fever or night sweats. ECOG score is 3, ENMT - She has sinus congestion/drainage. She had sore mouth and throat, but it is better now. She has no difficulty swallowing, Hematologic/Lymphatic - No abnormal bruising or bleeding, Respiratory - She sometimes has shortness of breath. She has had cough, but it is getting better. She has pain in the left side of her chest and in the substernal area. She also has episodes of tingling pain going around the left side of her chest, sometimes into the right chest area. These occur at least once or twice a day and sometimes at night, typically lasting about 15 minutes. No hemoptysis, Cardiovascular - No angina pain. No palpitations, Gastrointestinal - She has nausea every day and she also complains of having gas. No heartburn or acid reflux. No diarrhea or constipation. No blood in the stool or black stools, Genitourinary (F) - She recently had treatment for urinary tract infection, and that is better, though she still has frequency and urgency, Musculoskeletal - She also has pain in her back and left shoulder, Integumentary - No skin rash, Neurologic - No headache. She sometimes feels off balance. No numbness/paresthesia or other focal neurologic symptoms, Psychiatric - She has anxiety. Her depression is better. She sometimes has breakthrough pain at night. She is otherwise sleeping okay. Vital Signs: Performed on Sep 23, 2020 09:23 Height - 66.00 in Weight - 131 lbs (LOW) BSA - 1.67 sq.m BMI - 21.14 Temperature - 98.6 F Pulse - 94 /min Respiration - 16 /min BP - 130/80 mm(hg) O2 Sat - 96 % Pain - 6 Physical Examination: Constitutional - She appears somewhat weak generally, Eyes - Sclerae nonicteric. Conjunctivae clear, ENMT - There is mild candidiasis in the oral cavity, Hematologic/Lymphatic - No cervical, clavicular, or axillary adenopathy, Respiratory - Lungs sound clear with diminished air movement bilaterally, Cardiovascular - Heart rhythm is regular. There is no murmur, gallop, or rub noted, Abdomen - Soft. Liver and spleen are not enlarged. There is no abdominal mass or ascites noted and there is no inguinal adenopathy, Extremities - No edema, Neurologic - No focal neurologic deficits noted. Impression: 1. Patient with small cell carcinoma involving the mainstem bronchus of the left lung. By clinical evaluation her disease is stage IV (T2, N3, M1b) with PET/CT evidence of right adrenal metastasis. 2. There was associated left upper lobe and lingular atelectasis on her CT scan from 01/05/2019. 3. She reported having headache and vomiting, but her brain MRI showed no evidence for metastatic involvement. Her other medical illnesses include: 4. She has a history of hepatitis C, which apparently has not been treated. 5. Hypothyroidism. 6. Degenerative arthritis. 7. Chronic anxiety/depression. Due to involvement of the mainstem bronchus she began radiation urgently. In the setting metastatic disease the initial radiation was limited to a brief course of treatment, completed on 02/09/2019 to a total dose of 2400 cGy. She then began cycle 1 of carboplatin/etoposide chemotherapy on 02/13/2019. She had no acute toxicity with the chemotherapy. She did develop symptoms of radiation esophagitis, treated empirically with ranitidine and fluconazole. On 02/26/2019 she was admitted to the hospital with severe neutropenia and thrombocytopenia. She was not febrile, but her chest x-ray did show evidence of lingular pneumonia. She was treated Neupogen and broad-spectrum antibiotic coverage. She did not have bleeding, and she did not require platelet transfusion. Cycle 2 was delayed due to persistent thrombocytopenia. It was administered with dose reductions and with Neulasta prophylactically. She did have evidence of significant response by restaging CT scans on 04/09/2019. She then continued with cycle 3 on 04/11/2019 and with cycle 4 on 05/15/2019. She was tolerating treatment with acceptable toxicity, though she did require PRBC transfusion prior to cycle 4. Her restaging chest CT on 06/21/2019 showed stable mediastinal and left hilar soft tissue opacity. Enhancing anterior mediastinal AP window and precarinal soft tissue thickening also appeared unchanged from the prior study in April 2019. Subcarinal lymphadenopathy was stable at 10 mm. A 5 mm noncalcified right lower lobe pulmonary nodule at increased slightly in size. Interstitial infiltrates in the left upper lobe, lingula, and left lower lobe appeared stable. There were moderate to advanced chronic emphysematous changes. A right adrenal nodule was stable at 12 mm. Repeat head MRI on 2018 showed no evidence of metastatic disease to the brain. With those findings, she was referred to Dr. Golden for consolidation radiation. She completed treatment on 08/23/2019 to a total dose of 4600 cGy. She experienced significant side effects during the chemotherapy and radiation, but those had gradually resolved. During follow-up she had ongoing complaints of fatigue, and she had continued to have anxiety/depression. As of her follow-up visit in November 2019 she appeared stable clinically with no CT evidence of disease progression. On 05/16/2020 she had presented with Dr. Guaman with persistent headache and some nausea/vomiting. Her head CT showed lesions in the right parietal/occipital and right caudate lobes which were felt to be consistent with metastases. She was referred to Dr. Montenegro, and she completed palliative whole brain radiation. She had improvement in the headache with the radiation. Restaging CT scans on 07/16/2020 showed interval improvement in the appearance of the left upper and left lower lobe posttreatment changes/airspace disease with no obvious areas of disease progression. At her follow-up visit on 08/16/2020 she continued to have very marginal performance status, and at that point we opted to just continue with observation/symptomatic management. She initially had significant side effects with prednisone at 10 mg twice daily, but she is doing better now with the dosage reduced to 10 mg daily. Her pain management improved significantly with extended release morphine dosage increased to 60 mg every 12 hours, though she still does have some breakthrough pain at night. Plan: She continues on observation/symptomatic management. She will continue prednisone, but I will try a further dose reduction to 5 mg daily. Her extended release morphine will be changed to 60 mg in the morning and 90 mg in the evening. MSIR will be continued at 15 mg as needed. She will be given fluconazole 100 mg daily for 7 days for the oral candidiasis. Potassium will be changed to 10 mEq 4 times a day, as she has been having difficulty swallowing the 20 mEq tablet. I will repeat her urinalysis/culture today. I will see her again in 1 month. Signed By: Sky Hernandez M.D. <<Signature on File>>
== END 2020-09-23 09:26 | disposition home or self-care (01) ==
LOC: ONCMED 09:26
PROVIDERS: PCP Family Medicine; Visit Provider Internal Medicine Medical Oncology
DX: C34.02 Malignant neoplasm of left main bronchus (principal); B37.0 Candidal stomatitis; B19.20 Unspecified viral hepatitis C without hepatic coma; E03.9 Hypothyroidism, unspecified; M19.90 Unspecified osteoarthritis, unspecified site; F41.8 Other specified anxiety disorders; F17.210 Nicotine dependence, cigarettes, uncomplicated; Z92.3 Personal history of irradiation; Z79.52 Long term (current) use of systemic steroids; Z79.891 Long term (current) use of opiate analgesic
CPT/HCPCS: 99214

== ENCOUNTER 2020-10-21 12:13 | Outpatient (CLI) | payer MEDICAID, SELFPAY ==
--- NOTE | 2020-10-21 14:41 | ONC FU_ITS ---
Dr. Hernandez Patient Follow-Up Note Patient: Debbie Arce Unit #: [id number]: 1965 Dicatated By: Sky Hernandez M.D.Date of Visit:Oct 21, 2020 Onc Med Follow-up/Prog Note Chief Complaint: Lung cancer. 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 She had been treated for pneumonia in October 2018 and she just never really got better. She had worsening shortness of breath and cough and she was then found to have an abnormal chest x-ray. Further evaluation with chest CT on 01/05/2019 showed prominent sized confluent lobulated masslike lesion within the AP window continuous with larger masslike lesion within the precarinal and subcarinal space. The lateral margin of the precarinal mass was noted to extend into the right paratracheal space. There were a few other mildly enlarged lymph nodes noted within the superior right paratracheal space. There was contiguous soft tissue thickening of the left hilar region. There was a mildly enlarged right hilar lymph node. The majority of the left upper lobe and lingula were occupied with parenchymal consolidation, at least partially reflective of atelectasis. There was no pleural effusion noted. There was trace pericardial effusion. A 3.4 cm right adrenal mass was felt to be suspicious for metastasis. Also noted was a 1 cm nodule within the right upper lobe and a smaller 8 mm nodule within the central aspect of the right upper lobe adjacent to bronchovascular structures. On 01/22/2019 she underwent bronchoscopy with biopsy of left mainstem endobronchial mass and EBUS with FNA biopsy of station 10R, station 4R, and station 7 lymph nodes. The bronchoscopy showed a fleshy polypoid growth with necrotic surface rising about half a centimeter from the left mainstem extending along the anterior and lateral mainstem wall into the left upper lobe and left lower lobe. Biopsies of the endobronchial mass and of the station 4R lymph node showed small cell carcinoma. She began urgent radiation to the left lung on 02/02/2019. Her staging PET/CT on 02/03/2019 showed large left hilar mass measuring 6.0 x 9.1 cm with SUV 16.8. There was complete atelectasis of the left upper lobe. A 1.2 cm right upper lobe nodule at SUV 6.9, consistent with metastatic disease. An FDG positive right upper hilar lymph node was also likely metastatic. There were additional malignant lymph nodes in the superior mediastinum, pretracheal and subcarinal territories. A 9.6 cm right adrenal mass at SUV 18.5, consistent with metastatic disease. Given the PET/CT findings, her initial radiation was limited to a brief course of treatment, completed on 02/09/2019 to a total dose of 2400 cGy. Following completion of radiation, she began a course of chemotherapy with carboplatin/etoposide, cycle 1 day 1 on 02/13/2019. She completed that treatment without acute toxicity. On 02/26/2019 she was admitted to the hospital with severe neutropenia and thrombocytopenia. At that time she reported increased weakness and increased chest congestion and cough. She was not febrile and she was not having any active bleeding. Her chest x-ray, though, did show findings compatible with lingular pneumonia. She was treated with Neupogen and broad-spectrum antibiotic therapy. She was not transfused platelets, as she did not appear to have a significant bleeding tendency. She was discharged on 03/03/2019 with her absolute neutrophil count adequate at 3700 and her platelet count up to 32,000. As of her follow-up visit on 03/06/2019 her platelet count was still moderately decreased at 62,000, and her 2nd cycle of chemotherapy was delayed. She was able to continue with cycle 2 on 03/14/2019. It was administered with dose reductions and with Neulasta prophylactically. Restaging CT scans of the chest, abdomen, and pelvis on 04/09/2019 showed markedly decreased size of the left hilar mass with interval aeration of the left upper lobe. There was residual mediastinal and left hilar soft tissue opacity with subcarinal lymphadenopathy, residual tumor not excluded. The right adrenal gland nodule also appeared smaller. Coarse interstitial thickening was noted in the left upper lobe and there was new right middle and right lower lobe groundglass attenuation. With evidence of response by CT scan, she continued with cycle 3 on 04/11/2019 and with cycle 4 on 05/15/2019. During that time her neutrophil count and platelet count remained adequate, but she became increasingly anemic, requiring PRBC transfusion on 05/08/2019. Her restaging chest CT on 06/21/2019 showed stable mediastinal and left hilar soft tissue opacity. Enhancing anterior mediastinal AP window and precarinal soft tissue thickening also appeared unchanged from the prior study in April 2019. Subcarinal lymphadenopathy was stable at 10 mm. A 5 mm noncalcified right lower lobe pulmonary nodule at increased slightly in size. Interstitial infiltrates in the left upper lobe, lingula, and left lower lobe appeared stable. There were moderate to advanced chronic emphysematous changes. A right adrenal nodule was stable at 12 mm. Repeat head MRI on 2018 showed no evidence of metastatic disease to the brain. With those findings, she was referred to Dr. Golden for consolidation radiation. She completed treatment on 08/23/2019 to a total dose of 4600 cGy. Her medical history is otherwise significant for degenerative arthritis, hypothyroidism, hepatitis C, and anxiety/depression. She has history of smoking 1-2 packs of cigarettes daily. She has cut down. INTERIM HISTORY: Restaging chest CT on 10/12/2019 showed left upper and left lower lobe pneumonitis with variable appearance compared to the study from 06/21/2019. Small left pleural effusion and small pericardial effusion were increased from the prior exam. There was no stable treated appearance of the mediastinum and left hilum. There was no evidence of progressive or new lymphadenopathy and there was no evidence of a neoplastic mass lesion in the lungs. There was no evidence of progression of previous metastatic lesion to the right adrenal gland. A right breast nodule measuring 1.5cm appeared stable compared to the PET/CT from 02/03/2019, and it was noted to be FDG negative on that study. With those findings she continued on observation/expectant management. On 05/16/2020 she had presented to Dr. Guaman with persistent headache along with intermittent nausea/vomiting. Her head CT showed suspected metastases which included a 4.9 x 2.2 cm hemorrhagic lesion in the right parietal and occipital lobes and 1.1 cm lesion within the right caudate lobe. She was started on dexamethasone and she was referred to Dr. Montenegro. She began palliative whole brain radiation on 05/27/2020. She completed treatment on 06/09/2020 to a total dose of 3000 cGy. She tolerated the treatment well. Restaging CT scans of the chest, abdomen, and pelvis 07/16/2020 showed continued interval slow improvement in the posttreatment changes and airspace disease in the left upper and left lower lobe compared to the January 2020 study. There was no new or progressed adenopathy. Very mild nodularity involving the right adrenal gland appeared stable. There was no evidence of other metastatic disease. She was seen for follow-up visit on 08/26/2020. She had very marginal performance status. Given the CT findings, we opted to just continue with observation/symptomatic management. She is seen for a follow-up visit. She continues to have limited activity, but she is doing light work at home. She has appetite, but she is having early satiety and she complains that food does not taste or smell good. Her weight is down 6 pounds. She does not have fever or night sweats. She is short of breath with activity. She has cough productive of white sputum. She has been having pain in the middle of her chest. She has nausea says vomiting about every morning. Bowel and bladder function remain adequate. She has been having pain under her left rib cage and she has pain at the same level in her back. She has had some headaches and she complains of having poor balance. She has no focal neurologic symptoms. Medications: Advair Diskus 1 Puff(s) (of 250-50 mcg/dose) Aerosol Powder, Breath Activated Inhalation b.i.d. PRN, Albuterol Sulfate HFA 2 Puff(s) (of 108 (90 base) mcg/act) Aerosol, solution Inhalation q 6 hours, ALPRAZolam 1 Tablet (of 0.50 mg) Oral t.i.d., Flonase 1 [place](s) (of 50 mcg/act) Suspension Nasal daily, Fludrocortisone Acetate 1 Tablet (of 0.1 mg) Oral daily, guaiFENesin-Codeine 10 mL (of 100-10 mg/5mL) Syrup Oral q 4 hours PRN, HYDROcodone-Acetaminophen 1 Tablet (of 10-325 mg) Oral q 4 hours PRN, Klor-Con 10 1 (10 meq) Tablet, controlled release Oral b.i.d., Lactulose 1 Pack Oral PRN, Levo-T 1 Tablet (of 25 mcg) Oral daily, Loratadine 1 Tablet (of 10 mg) Oral daily, Morphine Sulfate 1 Tablet (of 15 mg) Oral four times a day, Morphine Sulfate ER 1 Tablet (of 60 mg) Tablet, controlled release Oral q 12 hours, Naloxone HCl 1 [place](s) (of 4 mg/0.1mL) Liquid Nasal, predniSONE 1 Tablet (of 10 mg) Oral daily, Protonix 1 Tablet (of 40 mg) Tablet, enteric coated Oral daily, Proventil HFA 1 Puff(s) (of 108 (90 base) mcg/act) Aerosol, solution Inhalation PRN, Pseudoephedrine HCl 1 (30 mg) Tablet Oral q 6 hours, Senokot 3 Tablet (of 8.6 mg) Oral b.i.d. PRN Allergies: Erythromycin Base, Latex, Penicillins, Sulfa Antibiotics, and traMADol HCl. Review of Systems: Constitutional - She has weakness/fatigue, but she is able to do housework. She has some appetite, but she has early satiety. She complains that nothing tastes or smells good. She has lost weight. She does not have fever or night sweats. ECOG score is 1, ENMT - She has sinus congestion/drainage. No mouth sores. No sore throat or difficulty swallowing, Hematologic/Lymphatic - She has easy bruising, Respiratory - She has shortness of breath with activity. She has cough productive of white sputum. No pleuritic pain or hemoptysis, Cardiovascular - She has been having pain in the middle of her chest. No palpitations, Gastrointestinal - She has pain in the upper abdomen on the left side. She has nausea/vomiting every morning. No heartburn or acid reflux. No diarrhea or constipation. No blood in the stool or black stools, Genitourinary (F) - No dysuria or hematuria. No urinary frequency. No urgency or incontinence, Musculoskeletal - She has pain in her back, at the same level of her stomach pain, Integumentary - No skin rash, Neurologic - She has just occasional headache. She does have poor balance. No numbness or tingling. No other focal neurologic symptoms, Psychiatric - Her depression is better. She does have difficulty sleeping. Vital Signs: Performed on Oct 21, 2020 09:31 Height - 66.00 in Weight - 125 lbs (LOW) BSA - 1.64 sq.m BMI - 20.18 Temperature - 98.3 F (LOW) Pulse - 90 /min Respiration - 16 /min BP - 142/92 mm(hg) (HIGH) O2 Sat - 93 % (LOW) Pain - 8 Physical Examination: Constitutional - She appears somewhat weak generally, Eyes - She has mild periorbital edema. Sclerae nonicteric. Conjunctivae clear, ENMT - No lesions noted in the oral cavity, Hematologic/Lymphatic - No cervical, clavicular, or axillary adenopathy, Respiratory - Lungs sound clear with diminished air movement bilaterally, Cardiovascular - Heart rhythm is regular. There is no murmur, gallop, or rub noted, Abdomen - Soft. There is mild tenderness in the epigastric area and medial left upper quadrant. Liver and spleen are not enlarged. There is no abdominal mass or ascites noted and there is no inguinal adenopathy, Extremities - No edema, Neurologic - No focal neurologic deficits noted. Lab/Imaging: Test performed on Oct 21, 2020 08:37 Glucose 89 mg/dL BUN 5 mg/dL Creatinine 0.55 mg/dL Cr Clearance (Est) 102.23 mL/min Sodium 142 mmol/L Potassium 3.2 mmol/L Chloride 102 mmol/L CO2 31 mmol/L Calcium 9.1 mg/dL Protein, Total 6.2 g/dL Albumin 3.4 g/dL Bilirubin, Total 0.7 mg/dL Alkaline Phosphatase 82 IU/L AST (SGOT) 15 IU/L ALT (SGPT) 8 IU/L WBC 6.0 10^9/L RBC 4.51 10^12/L HGB 13.4 g/dL HCT 40.6 % MCV 90.0 fl MCH 29.7 pg MCHC 33.0 g/dL RDW 12.9 % Platelet Count 183 10^9/L MPV 9.8 fL Neutrophils (Gran) 4.36 10^9/L Lymphocytes 1.11 10^9/L Monocytes 0.33 10^9/L Eosinophils 0.11 10^9/L Basophils 0.02 10^9/L Manual Lymphocytes 19 % Manual Monocytes 6 % Manual Eosinophils 2 % Manual Basophils 0 % Impression: 1. Patient with small cell carcinoma involving the mainstem bronchus of the left lung. By clinical evaluation her disease is stage IV (T2, N3, M1b) with PET/CT evidence of right adrenal metastasis. 2. There was associated left upper lobe and lingular atelectasis on her CT scan from 01/05/2019. 3. She reported having headache and vomiting, but her brain MRI showed no evidence for metastatic involvement. Her other medical illnesses include: 4. She has a history of hepatitis C, which apparently has not been treated. 5. Hypothyroidism. 6. Degenerative arthritis. 7. Chronic anxiety/depression. Due to involvement of the mainstem bronchus she began radiation urgently. In the setting metastatic disease the initial radiation was limited to a brief course of treatment, completed on 02/09/2019 to a total dose of 2400 cGy. She then began cycle 1 of carboplatin/etoposide chemotherapy on 02/13/2019. She had no acute toxicity with the chemotherapy. She did develop symptoms of radiation esophagitis, treated empirically with ranitidine and fluconazole. On 02/26/2019 she was admitted to the hospital with severe neutropenia and thrombocytopenia. She was not febrile, but her chest x-ray did show evidence of lingular pneumonia. She was treated Neupogen and broad-spectrum antibiotic coverage. She did not have bleeding, and she did not require platelet transfusion. Cycle 2 was delayed due to persistent thrombocytopenia. It was administered with dose reductions and with Neulasta prophylactically. She did have evidence of significant response by restaging CT scans on 04/09/2019. She then continued with cycle 3 on 04/11/2019 and with cycle 4 on 05/15/2019. She was tolerating treatment with acceptable toxicity, though she did require PRBC transfusion prior to cycle 4. Her restaging chest CT on 06/21/2019 showed stable mediastinal and left hilar soft tissue opacity. Enhancing anterior mediastinal AP window and precarinal soft tissue thickening also appeared unchanged from the prior study in April 2019. Subcarinal lymphadenopathy was stable at 10 mm. A 5 mm noncalcified right lower lobe pulmonary nodule at increased slightly in size. Interstitial infiltrates in the left upper lobe, lingula, and left lower lobe appeared stable. There were moderate to advanced chronic emphysematous changes. A right adrenal nodule was stable at 12 mm. Repeat head MRI on a 23 2019 showed no evidence of metastatic disease to the brain. With those findings, she was referred to Dr. Golden for consolidation radiation. She completed treatment on 08/23/2019 to a total dose of 4600 cGy. She experienced significant side effects during the chemotherapy and radiation, but those had gradually resolved. During follow-up she had ongoing complaints of fatigue, and she had continued to have anxiety/depression. As of her follow-up visit in November 2019 she appeared stable clinically with no CT evidence of disease progression. On 05/16/2020 she had presented with Dr. Guaman with persistent headache and some nausea/vomiting. Her head CT showed lesions in the right parietal/occipital and right caudate lobes which were felt to be consistent with metastases. She was referred to Dr. Montenegro, and she completed palliative whole brain radiation. She had improvement in the headache with the radiation. Restaging CT scans on 07/16/2020 showed interval improvement in the appearance of the left upper and left lower lobe posttreatment changes/airspace disease with no obvious areas of disease progression. At her follow-up visit on 08/16/2020 she continued to have very marginal performance status, and at that point we opted to just continue with observation/symptomatic management. She initially had significant side effects with prednisone at 10 mg twice daily, but she had been doing better at a lower dosage. She has had ongoing problems with her pain management, though it certainly has improved with addition of extended release morphine. She also is having significant problems with nausea/anorexia. At this point she appears stable clinically, but her overall prognosis remains very poor. Plan: She continues on symptomatic/supportive care measures. Her prednisone dosage will remain the same at 5 mg daily. Her extended release morphine will be changed to 60 mg every 12 hours. She will continue MSIR15 mg or hydrocodone/APAP as needed for pain. I will have her try Marinol again but with the dosage increase to 10 mg twice daily. I will see her again in 1 month. In the meantime, I again discussed the possibility of hospice referral. She remains undecided about it. Signed By: Sky Hernandez M.D. <<Signature on File>>
== END 2020-10-21 12:14 | disposition home or self-care (01) ==
LOC: ONCMED 12:14
PROVIDERS: PCP Family Medicine; Visit Provider Internal Medicine Medical Oncology
DX: C34.02 Malignant neoplasm of left main bronchus (principal); C79.71 Secondary malignant neoplasm of right adrenal gland; C79.31 Secondary malignant neoplasm of brain; G89.3 Neoplasm related pain (acute) (chronic); J98.11 Atelectasis; E03.9 Hypothyroidism, unspecified; M19.90 Unspecified osteoarthritis, unspecified site; F41.9 Anxiety disorder, unspecified; F32.9 Major depressive disorder, single episode, unspecified; Z79.899 Other long term (current) drug therapy; Z86.19 Personal history of other infectious and parasitic diseases
CPT/HCPCS: 99214

== ENCOUNTER 2020-11-25 13:00 | Outpatient (CLI) | payer MEDICAID, SELFPAY ==
--- NOTE | 2020-11-28 16:34 | ONC FU_ITS ---
Dr. Hernandez Patient Follow-Up Note Patient: Debbie Arce Unit #: [id number]: 1965 Dicatated By: Sky Hernandez M.D.Date of Visit:Nov 25, 2020 Onc Med Follow-up/Prog Note Chief Complaint: Lung cancer. 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 She had been treated for pneumonia in October 2018 and she just never really got better. She had worsening shortness of breath and cough and she was then found to have an abnormal chest x-ray. Further evaluation with chest CT on 01/05/2019 showed prominent sized confluent lobulated masslike lesion within the AP window continuous with larger masslike lesion within the precarinal and subcarinal space. The lateral margin of the precarinal mass was noted to extend into the right paratracheal space. There were a few other mildly enlarged lymph nodes noted within the superior right paratracheal space. There was contiguous soft tissue thickening of the left hilar region. There was a mildly enlarged right hilar lymph node. The majority of the left upper lobe and lingula were occupied with parenchymal consolidation, at least partially reflective of atelectasis. There was no pleural effusion noted. There was trace pericardial effusion. A 3.4 cm right adrenal mass was felt to be suspicious for metastasis. Also noted was a 1 cm nodule within the right upper lobe and a smaller 8 mm nodule within the central aspect of the right upper lobe adjacent to bronchovascular structures. On 01/22/2019 she underwent bronchoscopy with biopsy of left mainstem endobronchial mass and EBUS with FNA biopsy of station 10R, station 4R, and station 7 lymph nodes. The bronchoscopy showed a fleshy polypoid growth with necrotic surface rising about half a centimeter from the left mainstem extending along the anterior and lateral mainstem wall into the left upper lobe and left lower lobe. Biopsies of the endobronchial mass and of the station 4R lymph node showed small cell carcinoma. She began urgent radiation to the left lung on 02/02/2019. Her staging PET/CT on 02/03/2019 showed large left hilar mass measuring 6.0 x 9.1 cm with SUV 16.8. There was complete atelectasis of the left upper lobe. A 1.2 cm right upper lobe nodule at SUV 6.9, consistent with metastatic disease. An FDG positive right upper hilar lymph node was also likely metastatic. There were additional malignant lymph nodes in the superior mediastinum, pretracheal and subcarinal territories. A 9.6 cm right adrenal mass at SUV 18.5, consistent with metastatic disease. Given the PET/CT findings, her initial radiation was limited to a brief course of treatment, completed on 02/09/2019 to a total dose of 2400 cGy. Following completion of radiation, she began a course of chemotherapy with carboplatin/etoposide, cycle 1 day 1 on 02/13/2019. She completed that treatment without acute toxicity. On 02/26/2019 she was admitted to the hospital with severe neutropenia and thrombocytopenia. At that time she reported increased weakness and increased chest congestion and cough. She was not febrile and she was not having any active bleeding. Her chest x-ray, though, did show findings compatible with lingular pneumonia. She was treated with Neupogen and broad-spectrum antibiotic therapy. She was not transfused platelets, as she did not appear to have a significant bleeding tendency. She was discharged on 03/03/2019 with her absolute neutrophil count adequate at 3700 and her platelet count up to 32,000. As of her follow-up visit on 03/06/2019 her platelet count was still moderately decreased at 62,000, and her 2nd cycle of chemotherapy was delayed. She was able to continue with cycle 2 on 03/14/2019. It was administered with dose reductions and with Neulasta prophylactically. Restaging CT scans of the chest, abdomen, and pelvis on 04/09/2019 showed markedly decreased size of the left hilar mass with interval aeration of the left upper lobe. There was residual mediastinal and left hilar soft tissue opacity with subcarinal lymphadenopathy, residual tumor not excluded. The right adrenal gland nodule also appeared smaller. Coarse interstitial thickening was noted in the left upper lobe and there was new right middle and right lower lobe groundglass attenuation. With evidence of response by CT scan, she continued with cycle 3 on 04/11/2019 and with cycle 4 on 05/15/2019. During that time her neutrophil count and platelet count remained adequate, but she became increasingly anemic, requiring PRBC transfusion on 05/08/2019. Her restaging chest CT on 06/21/2019 showed stable mediastinal and left hilar soft tissue opacity. Enhancing anterior mediastinal AP window and precarinal soft tissue thickening also appeared unchanged from the prior study in April 2019. Subcarinal lymphadenopathy was stable at 10 mm. A 5 mm noncalcified right lower lobe pulmonary nodule at increased slightly in size. Interstitial infiltrates in the left upper lobe, lingula, and left lower lobe appeared stable. There were moderate to advanced chronic emphysematous changes. A right adrenal nodule was stable at 12 mm. Repeat head MRI on 2018 showed no evidence of metastatic disease to the brain. With those findings, she was referred to Dr. Golden for consolidation radiation. She completed treatment on 08/23/2019 to a total dose of 4600 cGy. Her medical history is otherwise significant for degenerative arthritis, hypothyroidism, hepatitis C, and anxiety/depression. She has history of smoking 1-2 packs of cigarettes daily. She has cut down. INTERIM HISTORY: Restaging chest CT on 10/12/2019 showed left upper and left lower lobe pneumonitis with variable appearance compared to the study from 06/21/2019. Small left pleural effusion and small pericardial effusion were increased from the prior exam. There was no stable treated appearance of the mediastinum and left hilum. There was no evidence of progressive or new lymphadenopathy and there was no evidence of a neoplastic mass lesion in the lungs. There was no evidence of progression of previous metastatic lesion to the right adrenal gland. A right breast nodule measuring 1.5cm appeared stable compared to the PET/CT from 02/03/2019, and it was noted to be FDG negative on that study. With those findings she continued on observation/expectant management. On 05/16/2020 she had presented to Dr. Guaman with persistent headache along with intermittent nausea/vomiting. Her head CT showed suspected metastases which included a 4.9 x 2.2 cm hemorrhagic lesion in the right parietal and occipital lobes and 1.1 cm lesion within the right caudate lobe. She was started on dexamethasone and she was referred to Dr. [place]en[place]. She began palliative whole brain radiation on 05/27/2020. She completed treatment on 06/09/2020 to a total dose of 3000 cGy. She tolerated the treatment well. Restaging CT scans of the chest, abdomen, and pelvis 07/16/2020 showed continued interval slow improvement in the posttreatment changes and airspace disease in the left upper and left lower lobe compared to the January 2020 study. There was no new or progressed adenopathy. Very mild nodularity involving the right adrenal gland appeared stable. There was no evidence of other metastatic disease. She was seen for follow-up visit on 08/26/2020. She had very marginal performance status. Given the CT findings, we opted to just continue with observation/symptomatic management. I discussed hospice on several occasions, but she declined. She is seen for a follow-up visit. She has continued to show some decline in her general condition. She has very limited effect activity now, and she sleeps a lot. Her ECOG score is 3. Appetite is not good. She does not have fever or night sweats. She does have some cough, but she says her breathing has been okay. She does not complain of chest pain. She still has nausea and she has vomiting most mornings. Bowel and bladder function have been okay. Her pain now is being managed adequately with a combination of extended and immediate release morphine. She does complain of some dizziness, but she does not have headache or focal neurologic symptoms. Medications: Advair Diskus 1 Puff(s) (of 250-50 mcg/dose) Aerosol Powder, Breath Activated Inhalation b.i.d. PRN, Albuterol Sulfate HFA 2 Puff(s) (of 108 (90 base) mcg/act) Aerosol, solution Inhalation q 6 hours, ALPRAZolam 1 Tablet (of 0.50 mg) Oral t.i.d., Flonase 1 [place](s) (of 50 mcg/act) Suspension Nasal daily, Fludrocortisone Acetate 1 Tablet (of 0.1 mg) Oral daily, guaiFENesin-Codeine 10 mL (of 100-10 mg/5mL) Syrup Oral q 4 hours PRN, HYDROcodone-Acetaminophen 1 Tablet (of 10-325 mg) Oral q 4 hours PRN, Klor-Con 10 1 (10 meq) Tablet, controlled release Oral b.i.d., Lactulose 1 Pack Oral PRN, Levo-T 1 Tablet (of 25 mcg) Oral daily, Loratadine 1 Tablet (of 10 mg) Oral daily, Morphine Sulfate 1 Tablet (of 15 mg) Oral four times a day, Morphine Sulfate ER 1 Tablet (of 60 mg) Tablet, controlled release Oral q 12 hours, Naloxone HCl 1 [place](s) (of 4 mg/0.1mL) Liquid Nasal, predniSONE 1 Tablet (of 10 mg) Oral daily, Protonix 1 Tablet (of 40 mg) Tablet, enteric coated Oral daily, Proventil HFA 1 Puff(s) (of 108 (90 base) mcg/act) Aerosol, solution Inhalation PRN, Pseudoephedrine HCl 1 (30 mg) Tablet Oral q 6 hours, Senokot 3 Tablet (of 8.6 mg) Oral b.i.d. PRN Allergies: Erythromycin Base, Latex, Penicillins, Sulfa Antibiotics, and traMADol HCl. Vital Signs: Performed on Nov 25, 2020 12:29 Height - 66.00 in Temperature - 97.5 F (LOW) Pulse - 79 /min Respiration - 18 /min BP - 80/60 mm(hg) (LOW) O2 Sat - 97 % Pain - 0 Physical Examination: Constitutional - She appears generally weak and she is very somnolent today, Eyes - Sclerae nonicteric. Conjunctivae clear, ENMT - No lesions noted in the oral cavity, Hematologic/Lymphatic - No cervical, clavicular, or axillary adenopathy, Respiratory - Lungs sound clear with diminished air movement bilaterally, Cardiovascular - Heart rhythm is regular. There is no murmur, gallop, or rub noted, Abdomen - Soft. Liver and spleen are not enlarged. There is no abdominal mass or ascites noted and there is no inguinal adenopathy, Extremities - No edema, Neurologic - No focal neurologic deficits noted. Lab/Imaging: CBC shows hemoglobin 13.7 g, white blood cell count 8200, and platelet count 192,000. Comprehensive metabolic profile is unremarkable except for low potassium at 2.6 mmol/L. Problem List: 1. Patient with small cell carcinoma involving the mainstem bronchus of the left lung. By clinical evaluation her disease was stage IV (T2, N3, M1b) with PET/CT evidence of right adrenal metastasis. 2. Due to involvement of the mainstem bronchus she began radiation urgently, limited to a brief course of treatment, completed on 02/09/2019 to a total dose of 2400 cGy. She then had further treatment with 4 cycles of carboplatin/etoposide chemotherapy, completed in May 2019, followed by consolidation radiation to the left lung/mediastinum. 3. She had evidence of metastatic involvement in the brain by CT scan in May 2020. She completed palliative whole brain radiation on 06/09/2020 to a total dose 3000 cGy. 4. She has a history of hepatitis C, which apparently has not been treated. 5. Hypothyroidism. 6. Degenerative arthritis. 7. Chronic anxiety/depression. Problems Addressed with this Encounter and Plan: 1. Patient with small cell carcinoma involving the mainstem bronchus of the left lung. By clinical evaluation her disease was stage IV (T2, N3, M1b) with PET/CT evidence of right adrenal metastasis. She had shown a good response to initial treatment with radiation and carboplatin/etoposide chemotherapy. In May 2020 she was found on CT to have evidence of metastatic involvement in the brain. She did receive palliative whole brain radiation. As there was no other evidence for disease progression, her further management was limited to symptomatic/supportive measures. During further follow-up she was offered hospice, which she declined. At this point her pain appears to be managed adequately with a combination of extended and immediate release morphine, but she continues to have nausea and vomiting, and there has been further decline in her performance status. As such, she will continue with symptomatic/supportive care measures. Her prognosis appears to be very poor. Patient and daughter now are agreeable to hospice referral, this will be arranged. I will see her again as needed. 2. She has cancer related pain. It currently is being managed adequately with combination of extended and immediate release morphine. Those medications will be continued as ordered. 3. She has persistent nausea and associated vomiting. She will continue ondansetron as needed, I will have hospice try adding a scopolamine patch. Depending on how she responds, I also may consider changing her steroid to dexamethasone. 4. Persistent hypokalemia. She has had poor tolerance for potassium supplements, which she will continue as she is able to tolerate. 5. Anxiety/depression. It is being managed adequately on her current medication. Signed By: Sky Hernandez M.D. <<Signature on File>>
== END 2020-11-25 13:01 | disposition home or self-care (01) ==
LOC: ONCMED 11-26 09:57
PROVIDERS: PCP Family Medicine; Visit Provider Internal Medicine Medical Oncology
DX: C34.02 Malignant neoplasm of left main bronchus (principal); C79.31 Secondary malignant neoplasm of brain; C79.71 Secondary malignant neoplasm of right adrenal gland; G89.3 Neoplasm related pain (acute) (chronic); R11.2 Nausea with vomiting, unspecified; E87.6 Hypokalemia; F41.8 Other specified anxiety disorders; Z79.891 Long term (current) use of opiate analgesic; Z79.899 Other long term (current) drug therapy; Z92.3 Personal history of irradiation; Z92.21 Personal history of antineoplastic chemotherapy
CPT/HCPCS: 99214

== ENCOUNTER 2020-12-06 12:32 | Emergency (ER) | payer MEDICAID, SELFPAY ==
[2020-12-06 12:34] VITALS: BP 121/84; PULSE 91; RESP 16; TEMP 36.9; O2SAT 95; BMI 23.0
--- NOTE | 2020-12-06 12:37 | XRR_ITS ---
PROCEDURE INFORMATION: Exam: XR Left Ankle Exam date and time: 12/06/2020 12:53 PM Age: 55 years old Clinical indication: Injury or trauma; Fall; Blunt trauma; Ankle; Left TECHNIQUE: Imaging protocol: XR Left ankle. Views: 1 or 2 views. COMPARISON: No relevant prior studies available. FINDINGS: Bones/joints: Negative for acute bony abnormality. Small bone spurs present on the inferior calcaneus. Soft tissues: Unremarkable XR/XR ankle LT 2V [id number] IMPRESSION: No acute bone abnormality.
--- NOTE | 2020-12-06 12:37 | XRR_ITS ---
PROCEDURE INFORMATION: Exam: XR Left Foot Exam date and time: 12/06/2020 12:53 PM Age: 55 years old Clinical indication: Injury or trauma; Fall; Blunt trauma; Foot; Left; Additional info: Fall/ swelling TECHNIQUE: Imaging protocol: XR Left foot. Views: 1 or 2 views. COMPARISON: No relevant prior studies available. FINDINGS: Bones/joints: Negative for acute bone abnormality. A small bone spurs present on the inferior calcaneus. Soft tissues: Normal. XR/XR foot LT 2V [id number] IMPRESSION: No acute findings.
--- NOTE | 2020-12-06 12:40 | W.ED.LOWEXIN ---
HPI - Extremity Injury (Lower) General: Chief Complaint: Extremity Injury, Lower Stated Complaint: LEFT FOOT PAIN S/P FALL Time Seen by Provider: 12/06/20 12:33 History of Present Illness: HPI Narrative: Patient comes to the ER after a fall at home. She says her left foot bent backwards and now there is swelling in the foot and pain and tenderness. Neurovascularly intact distal to injury but she is unable to bear weight on the foot. She is on hospice for stage IV lung cancer with mets to the brain. Family gave her 20 mg of extended release morphine prior to arrival. She said her pain has improved some MD complaint: ankle injury, foot injury and fall Type of Injury: hyperextension Place: home Severity: severe Exacerbating factors: weight bearing, movement and palpation Associated symptoms: Reports inability to bear weight, swelling and tingling; Deny numbness Other symptoms: none Review of Systems General: Reports: 10 or more systems reviewed and unremarkable except in HPI and below Const: Denies: fatigue Eyes: Denies: change in vision, blurry vision or eye redness ENMT: Denies: throat pain, swelling of lips/tongue, ear or mastoid pain or nasal congestion Card: Denies: chest pain, palpitations, irregular heart rhythm, edema, dyspnea on exertion or orthopnea Resp: Denies: dyspnea, productive cough or non-productive cough GI: Denies: abdominal pain, diarrhea or GI cramping : Denies: flank pain, difficulty voiding, urinary frequency or urinary urgency Musc: Reports: extremity pain and joint pain; Denies: neck pain, back pain, joint redness, limited range of motion or muscle weakness Skin/Breast: Denies: rash, pruritus, erythema, skin pain or skin tenderness Neuro: Denies: headache(s), numbness in extremities, weakness in extremities, sensory changes, difficulty walking, dizziness, confusion or Slurred speech present Psych: Denies: anxiety or depression Endo: Denies: polyuria All/Imm: Denies: urticaria, throat swelling or tongue swelling PFSH ED PFSH: Social History Smoking and tobacco status: current every day smoker Physical Exam Const: COMMON NORMALS: no acute distress, average body habitus, patient oriented x3, no limitations, healthy appearing, alert and well nourished GENERAL APPEARANCE: cooperative, comfortable, well kempt and well developed ORIENTATION/CONSCIOUSNESS: Yes awake, Yes oriented to person, Yes oriented to place and Yes oriented to time HENMT: COMMON NORMALS: normocephalic, external ears normal and Normal external nose present HEAD & SCALP: normal to inspection and normocephalic NOSE: Normal external nose present EXTERNAL EAR: Yes external ears normal MOUTH: Normal oral and palatal mucosa present THROAT: posterior oropharynx normal Eye: COMMON NORMALS: Equal, round and reactive pupils present and EOMs intact bilaterally GENERAL EYE: appearance normal, both eyes and all related structures PUPIL: Yes Equal, round and reactive pupils present Neck/C-Spine: COMMON NORMALS: full ROM, no lymphadenopathy, no meningeal signs and no JVD GENERAL: Yes normal visual inspection Lymph: LYMPHATIC: no lymphadenopathy noted Chest: COMMONS NORMALS: normal inspection of the chest and normal palpation of entire chest wall Resp: COMMON NORMALS: normal respiratory effort, No retractions, No use of accessory muscles, clear to auscultation bilaterally and percussion normal EFFORT & INSPECTION: Yes able to speak in complete sentences AUSCULTATION: clear to auscultation bilaterally PERCUSSION: percussion normal Cardio: COMMON NORMALS: no JVD, regular rate, regular rhythm, S1 normal heart sound present, S2 normal heart sound present and Peripheral pulses 2+ throughout RATE: regular rate RHYTHM: regular rhythm HEART SOUNDS: S1 normal heart sound present and S2 normal heart sound present PERIPHERAL PULSES: Peripheral pulses 2+ throughout GI: COMMON NORMALS: Normal to inspection, nondistended, normoactive bowel sounds present, Soft to palpation, non-tender and no masses INSPECTION: Yes normal to inspection PALPATION: Yes Soft to palpation : COMMON NORMALS: Yes no CVA tenderness BLADDER/KIDNEY EXAM: Yes no CVA tenderness Back/Pelvis: COMMON NORMALS: no CVA tenderness, thoracic and lumbar spine normal to inspection, no thoracic nor lumbar tenderness and thoraco-lumbar ROM normal Extremity: COMMON NORMALS: normal to inspection, full ROM, capillary refill normal, no joint enlargement and no pedal edema NARRATIVE EXTREMITY EXAM: Normal on right. Left foot has a large swelling to the lateral aspect likely fracture or other injury below. Associated tenderness. Neurovascularly intact distal to injury GENERAL: Yes normal exam except as noted Neuro: COMMON NORMALS: patient oriented x3, CN's II-XII intact bilaterally, moves all extremities, no focal motor deficits, no sensory deficits noted and gait normal SENSORIUM/ORIENTATION: Yes alert, Yes oriented to person, Yes oriented to place and Yes oriented to time MENINGEAL SIGNS: Yes no meningeal signs Psych: COMMON NORMALS: mental status grossly normal, Normal thought process present, cooperative, normal affect and speech normal APPEARANCE: Yes well kempt ATTITUDE: Yes calm SPEECH: Yes normal speech THOUGHT PROCESS: Normal thought process present Skin: COMMON NORMALS: no rashes or lesions noted GENERAL SKIN EXAM: no rashes or lesions noted Course Vital Signs: Vital signs: Vital Signs Temperature 98.5 F 12/06/20 12:34 Pulse Rate 91 12/06/20 12:34 Respiratory Rate 16 12/06/20 12:34 Blood Pressure 121/84 12/06/20 12:34 Pulse Oximetry 95 12/06/20 12:34 MDM - Extremity Injury (Lower) MDM Narrative: Medical decision making narrative: No fractures. Likely ligamentous injury. MRI in a week from PCP. Ortho outpatient follow up. Case management referral placed to help with this. ER with worsening symptoms. Discharge Plan Discharge Patient Disposition: Home Clinical Impression: Ankle sprain and strain Condition: Stable Discharge Orders: Discharge ED (Routine); Ordered 12/06/20 Ordered By: Dallas Feldman Referrals: Nghia Guaman [Primary Care Provider] - Discharge Diet: Advance as tolerated Discharge Activity: Resume usual activity Patient Instructions: Ankle Sprain (ED) Activity Restrictions/Additional Instructions: Your XRays are negative for a bone fracture. Please follow up with your primary care physician in a week for an MRI of your ankle/foot as you likely have a ligamentous injury. Also i have placed a referral to case management to help you get a referral to an orthopedic surgeon. Please follow up with him. Return to ER with worsening symptoms. Coding Level of Care Code ED Strategic Accounts Manager for [facility] Exam Comprehensive
[2020-12-06 15:05] VITALS: BP 124/75; PULSE 93; RESP 18; O2SAT 93
--- NOTE | 2020-12-08 10:35 | DCPLANNER ---
manager planning had message to schedule a follow up appointment for patient with ortho. manager planning called the ortho clinic, spoke with Agustina, gave clinic patients information. manager planning was told that patients information would be printed and reviewed. Clinic will call patient with appointment information.
--- NOTE | 2020-12-17 10:40 | DCPLANNER ---
grooming salon manager called ortho clinic to confirm that an appointment had been scheduled for patient. grooming salon manager spoke with Kaye, was told that clinic called patient, left a voicemail for patient to return correctional counselor/case manager phone call, patient has not called back to schedule an appointment.
== END 2020-12-06 15:05 | disposition home or self-care (01) ==
PROVIDERS: Emergency Provider Family Medicine; PCP Family Medicine
DX: S93.402A Sprain of unspecified ligament of left ankle, initial encounter (principal); S96.912A Strain of unspecified muscle and tendon at ankle and foot level, left foot, initial encounter; X50.1XXA Overexertion from prolonged static or awkward postures, initial encounter; F17.210 Nicotine dependence, cigarettes, uncomplicated
CPT/HCPCS: 12345; 73600; 73620; 99282; L4361